=== PATIENT | female | born 1935 | race Caucasian/White ===

== ENCOUNTER 2017-04-14 05:59 | Day surgery (SDC) | payer MEDICARE ==
[~2017-04-14] VITALS: Ht 157.5 cm; Wt 101.8 kg
[~2017-04-14 05:59] MED LIST: ASPI81TA82 PO; ATEN1TAB74 PO; ATOR40TA PO; CENTCHW3 PO; CYCL-36 PO; ENAL20TA81 PO; FOLI400T30 PO; FURO1TAB93 PO; GABA600T PO; GLUC500C3 PO; HYDR-2951 PO; LANSO15 PO; LEVO100T4 PO; NORV5TAB PO; POTA-243 PO; VITA20003 PO
[2017-04-14] MEDS ORDERED: IOHEXOL 350 MG/ML 50 ML BTL (for Cath Lab) OTHER ONE (06:00)
[2017-04-14] MEDS ORDERED: IOHEXOL 350 MG/ML 10 ML VIAL (for RAD DIAG) IVCONTRAST ONE (06:00)
[2017-04-14] MEDS ORDERED: NS 1000P @30 MLS/HR (KVO) IV SCH (06:45)
[2017-04-14 07:14] VITALS: BP 145/76; PULSE 61; RESP 17; TEMP 98.1; O2SAT 95
[2017-04-14] MEDS ORDERED: AMLO5TAB2 PO (07:25)
[2017-04-14] MEDS ORDERED: LORA0.5T PO (07:33)
[2017-04-14] MEDS ORDERED: NORC5TAB PO (07:33)
[2017-04-14] MEDS ORDERED: CHOL1CAP24 PO (07:33)
[2017-04-14] MEDS ORDERED: ATEN50TA PO (07:33)
[2017-04-14] MEDS ORDERED: POTA10CA PO (07:33)
[2017-04-14] MEDS ORDERED: GABA300C5 PO (07:33)
[2017-04-14] MEDS ORDERED: LISI30TA4 PO (07:33)
[2017-04-14] MEDS ORDERED: ECASA81 PO (07:33)
[2017-04-14] MEDS ORDERED: ATOR80TA45 PO (07:33)
[2017-04-14] MEDS ORDERED: LEVO100T5 PO (07:33)
[2017-04-14] MEDS ORDERED: DOXE25CA2 PO (07:33)
[2017-04-14] MEDS ORDERED: FURO40TA PO (07:33)
[2017-04-14] MEDS ORDERED: RANI150T PO (07:33)
[2017-04-14] MEDS ORDERED: HEPARIN-NS/PF INJ 1,000 ML ONE (09:04)
[2017-04-14] MEDS ORDERED: MIDAZOLAM HCL 2 MG/2 ML VIAL ONE (09:05)
--- NOTE | 2017-04-14 09:24 | PD.FRAIL ---
Date: Apr 14, 2017 Height: 157.48 cm Weight: 101.8 kg BMI: 41.0 Assessment Performed: Outpatient Albumin 04/14/17 06:57: Albumin 3.6 Pass/Fail: Pass [place] Activities Daily Living [place] ADL Score: Bathing(bathes self/help in single area): [place] (1), Dressing(gets/puts clothes on self): [place] (1), Toileting(goes without help): [place] ( 1), [facility] [place] (1), Continence( complete self-control): [place] (1), Feeding(self, prep by another allowed) : [place] (1), Total: 6 Pass/Fail: Pass Cyber Systems Administrator Strength Grasp 1: 22 Grasp 2: 24 Grasp 3: 24 Average: 22.6 Pass/Fail: Pass 15-Foot Walk 15-Foot Walk (seconds): 10.2 Pass/Fail: Fail Total Frailty Total Frailty (out of 4): 1 Frailty Index Score Reference Cyber Systems Administrator Strength: BMI: <=23 Cutoff for cctv technician strength(Kg): <=17 BMI: 23.1-26 Cutoff for cctv technician strength(Kg): <=17.3 BMI: 26.1-29 Cutoff for cctv technician strength(Kg): <=18 BMI: >29 Cutoff for cctv technician strength(Kg): <=21 15-Foot Walk: Height: <=159 cm 15-Foot Walk Cutoff Time: >=7 seconds Height: >159 cm 15-Foot Walk Cutoff Time: >=6 seconds Indra Pittman RN Apr 14, 2017 09:24
[2017-04-14 10:03] LABS: BLOOD, URINE SMALL (NEG); GLUCOSE,URINE NEG (NEG); KETONE, URINE NEG (NEG); MUCUS URINE FEW /lpf (OCC); NITRITE,URINE NEG (NEG); SQUAMOUS EPITHELIAL CELL URINE 2 /hpf (0-5); URINE COLOR LIGHT-YELLOW (YELLW/STRAW)
[2017-04-14 10:09] LABS: COMMENT (UR) CATH-CULT NOT IND; CULTURE IF INDICATED CATH CULTURE NOT IND
[2017-04-14] MEDS ORDERED: BACITRACIN OINT 0.9 GM PKT TOP ONE (10:15)
[2017-04-14] MEDS ORDERED: oxyCODONE/ACETAMINOPHEN 5 MG/325 MG TAB PO PRN ×2 (10:15)
[2017-04-14] MEDS ORDERED: SODIUM CHLOR 0.9% 250 ML INJ 250 ML IV PRN (10:15)
[2017-04-14] MEDS ORDERED: ATROPINE SULFATE 1 MG/ML VIAL IV PUSH PRN (10:15)
[2017-04-14] MEDS ORDERED: METOCLOPRAMIDE HCL 10 MG/2 ML VIAL IV PUSH PRN (10:15)
[2017-04-14] MEDS ORDERED: MISC INFORMATION XX ONE (10:15)
[2017-04-14] MEDS ORDERED: LIDOCAINE HCL 1% 50 ML VIAL INFIL PRN (10:15)
[2017-04-14] MEDS ORDERED: SODIUM CHLORIDE 0.9% FLUSH 10 ML FLUSH IV FLUSH PRN (10:15)
[2017-04-14] MEDS ORDERED: LORazepam 2 MG/ML VIAL IV PUSH PRN (10:15)
[2017-04-14] MEDS ORDERED: ONDANSETRON HCL 4 MG/2 ML VIAL IV PUSH PRN (10:15)
--- NOTE | 2017-04-14 10:28 | CATHPROC ---
Needl HIS Report Study Information Study Number Admission Scheduled Start Study Start [id number] Apr 14 2017 5:59AM 04/14/2017 Apr 14 2017 8:10AM [place] [facility] Cardiac Catheterization Admit Source Facility Department Other [facility] - History Card Clerk Physician and Clinical Staff Initial Chace Wadsworth Director Agricultural Services Rambo Kumar,RN Recorder Lenka Polo,RT(R) Milton BinghamRT(R) ScrMary Grace Koo,core mounter Performed Procedure Location (Site) Vessel Name Coronary Angiograms LCA Left Coronary Coronary Angiograms RCA Right Coronary Equipment Time Scrap Dealer Description Size Mfg Part Number Used/Scraped ARROW INTERNATIONAL CATHETER, FR.7 BALLOON [id number] 08:52 FR 7 Used INC. WEDGE PRESSURE *[id number] TRANSDUCER, TRUWAVE [id number] 08:52 FINE ALCANTARA * Used W/STOCKCOCK *[id number] [id number] *[id number] [id number] *[id number] 08:52 MEDLINE INDUSTRIES PACK, CCL CUSTOM * Used *[id number] 08:52 [employer]way PACER PEN, SKIN DUAL W/ RULER * Used *[id number] 08:52 [employer] WIRE, 3MMJ .035 180CM 180CM Used *[id number] 08:52 NAMIC MANIFOLD, 2 PORT * Used *[id number] 08:52 NAMIC MANIFOLD, 4 PORT * Used *[id number] 08:52 NYCOMED OMNIPAQUE, 350 MG, 150ML 150ML [id number] Used [id number] 08:52 YEE MEDICAL BLANKET,WARM AIR CCL * Used *[id number] 08:52 TERUMO MEDICAL SHEATH, FR5 TERUMO (10CM) FR 5 Used *[id number] 08:52 TERUMO MEDICAL SHEATH, FR7 TERUMO (10CM) FR 7 Used *[id number] History: Current Medications Medication Dosage/Unit Route Frequency Last Date/Time Taken ASA LISINOPRIL History: Allergies Allergy Reaction tetanus toxoid, adsorbed SWELLING AT INJECTION SITE brimonidine redness duloxetine History: Risk Factors Family History of Hypertension Dyslipidemia Previous PA Previous Heart Failure Premature CAD Yes Yes Yes Yes Yes Prior Valve Prior PCI Prior CABG Surgery No No No Cerebrovascular Peripheral Artery Chronic Lung On Dialysis Diabetes Disease Disease Disease No No No No Yes History: Stress Tests Stress or Imaging Studies Performed No History: Other Disease Selection Items CHF HTN History: Other Current Smoker No Labs Hgb (g/dl) Hct (%) WBC (l/cumm) Platelets (thousands) 11.60-17.00 35.00-51.00 4.00-11.00 150.00-450.00 13.6 41.6 7.9 266 Glucose (mg/dl) BUN (mg/dl) Creatinine (mg/dl) BUN:Creatinine (1:x) 74.00-106.00 7.00-18.00 0.50-1.30 10.00-20.00 133 13 0.9 14.4 Na (meq/l) K (meq/l) 136.00-145.00 3.50-5.10 146 4.1 Medication Medication Total Dose (Bolus/Oral) Medication Total Dosage/Unit 1% XYLOCAINE 20 mL FENTANYL 25 mcg VERSED 1 mg Medications (Bolus/Oral) Medication Time Given Dosage/Unit Administered By Reason VERSED 04/14/2017 9:24:29 AM 1 mg Rambo Kumar 1 mg VERSED given in lab by Rambo Kumar RN in Right Antecubital via Peripheral IV. Ordered by Chace Maier. FENTANYL 04/14/2017 9:25:35 AM 25 mcg Rambo Kumar 25 mcg FENTANYL given in lab by Rambo Kumar RN in Right Antecubital via Peripheral IV. Ordered by Chace Morgan. 1% XYLOCAINE 04/14/2017 9:32:53 AM 20 mL Chace Morgan 20 mL 1% XYLOCAINE given in lab by Chace Morgan in Right Groin via Subcutaneous. Medication (Drip) Medication Time Given Dosage/Unit Concentration/Unit Diluent (ml) Solution IV Solutions 04/14/2017 9:00:53 AM 50 mL (IV) NaCl .9 IV Solutions given in lab by Rambo Kumar RN in Right Hand via Peripheral IV. Pump/Drip Flow using NaCl .9. Initial Case Assessment Cardiovascular HR Rhythm NIBP Chest Pain 78 SR 151/78 0 Skin color Skin Normal Warm Dry Neurological State Oriented to time-place- Alert Moves all extremities person Respiration - General Respiration Rate SpO2 (%) (B/min) 20 96 Chronological Log Time Study Chronological Log 8:58:00 Patient arrived via Bed. 9:00:36 Patient Name, D.O.B, / Armband Verified By R.N. 9:00:37 Consent signed by the physician and the patient and verified by the History Card Clerk staff. 9:00:37 Pre-op and post- op instructions given; patient acknowledges understanding of instructions. 9:00:38 Verbal Stimulation=2 Physical Stimulation=2 Airway=2 Respiration=2 TOTAL=8. (0=absent, 1=li mited, 2=present) 9:00:41 Presedation assessment performed by History Card Clerk RN. 9:00:45 Patient has been NPO for More than 6Hrs. 9:00:46 Skin Breakdown- none per pt 9:00:49 Patient Warmer Placed on the Table. 9:00:50 Ben Prominences Protected 9:00:52 A # 20 IV was noted in the Antecubital (right). Grade = 0 9:00:53 IV Solutions given in lab by Rambo Kumar RN in Right Hand via Peripheral IV. Pump/Drip F low using NaCl .9. 9:00:53 History and physical on the chart or being dictated. Assessment: Initial Case, HR=78 BPM, Rhythm=SR, ADTM=879/78 mmhg, Chest Pain=0, Color=Normal, Skin = Warm, Dry 9:00:54 Neurological: State=Alert, Ox3, FERNÁNDEZ Respiration: Resp=20 B/min, SpO2=96 % Vitals capture started with the following parameters, Patient=Adult, Interval=5 min, Initial P hpewtyf=304 mmHg, 9:03:05 Deflation Rate=5 mmHg, Cuff placed on Left Arm 9:03:53 HR=78 bpm, RZWJ=332/78 mmhg, SpO2=96.0 %, Resp=20 B/min 9:08:54 HR=78 bpm, ARKS=756/75 mmhg, SpO2=96.0 %, Resp=18 B/min 9:13:51 HR=70 bpm, IGZW=007/79 mmhg, SpO2=97.0 %, Resp=15 B/min 9:15:14 Reference ECG taken 9:18:50 HR=75 bpm, DABC=430/92 mmhg, SpO2=97.0 %, Resp=17 B/min 9:19:29 Bilateral groins prepped with 2% chlorhexidine, and draped after a 3 minute waiting time. 9:23:53 HH=416 bpm, ODLG=498/63 mmhg, SpO2=97.0 %, Resp=20 B/min 9:24:03 MD arrived. 9:24:29 1 mg VERSED given in lab by Rambo Kumar RN in Right Antecubital via Peripheral IV. Order ed by Chace Morgan. 9:25:35 25 mcg FENTANYL given in lab by Rambo Kumar RN in Right Antecubital via Peripheral IV. Or dered by Chace Morgan. 9:28:45 Pressure channel 1 zeroed. 9:28:52 HR=71 bpm, KCVD=438/68 mmhg, SpO2=96 %, Resp=18 B/min Time Out. Correct patient, correct procedure, correct physician, power injector loaded, or not loaded with contrast with 9:31:29 surgical team present. Time Out Concurred by MD and individual staff in procedure. 9:32:43 Case Start 9:32:53 20 mL 1% XYLOCAINE given in lab by Chace Morgan in Right Groin via Subcutaneous. 9:33:51 HR=70 bpm, XTGU=188/64 mmhg, SpO2=92.0 %, Resp=16 B/min 9:34:22 Access site was Right Femoral Artery. 9:34:52 A SHEATH, FR5 TERUMO (10CM) FR 5 was advanced into the Fem Art (right) using the Percutaneou s technique. 9:36:24 Access site was Right Femoral Vein. 9:36:30 A SHEATH, FR7 TERUMO (10CM) FR 7 was advanced into the Fem Vein (right) using the Percutaneo us technique. A CATHETER, FR.7 BALLOON WEDGE PRESSURE FR 7 was advanced over a wire. OMNIPAQUE, 350 MG, 150ML 150ML 9:37:18 was used for injections. Recorded Pressure: RA, HR=67, Condition=Condition 1 9:38:07 (Right Atrium) RA 21/18/17 Recorded Pressure: RV, HR=75, Condition=Condition 1 9:38:30 (Right Ventricle) RV 46/14/20 9:38:52 HR=71 bpm, LFIR=299/75 mmhg, SpO2=94.0 %, Resp=16 B/min Recorded Pressure: MPA, HR=70, Condition=Condition 1 9:39:13 (Main Pulmonary Artery) MPA 41/19/30 9:39:30 Saturation: Site=Ao (Aorta) , O2=94.7 %, Hgb=13.6 gm/dl, Condition=Condition 1. Used in calc ulation. 9:39:58 Saturation: Site=PA (Pulmonary Artery) , O2=78.8 %, Hgb=13.6 gm/dl, Condition=Condition 1. U sed in calculation. Recorded Pressure: PCW, HR=72, Condition=Condition 1 9:40:15 (Pulmonary Capillary Wedge) PCW 27//21 9:40:38 [place] Catheter Removed A JL 4.0 INFINITI CATHETER FR 5 was advanced over a wire. OMNIPAQUE, 350 MG, 150ML 150ML was us ed for 9:42:01 injections. Recorded Pressure: Ao, HR=71, Condition=Condition 1 9:43:50 (Aorta) Ao 138/74/101 9:43:51 HR=71 bpm, EKVQ=567/68 mmhg, SpO2=92.0 %, Resp=17 B/min 9:45:14 The LCA was injected and visualized at various angles. OMNIPAQUE, 350 MG, 150ML 150ML used. After removing the current catheter a JR 4.0 INFINITI CATHETER FR 5 was advanced over a WIRE, 3 MMJ .035 180CM 9:47:55 180CM. 9:48:52 HR=68 bpm, IRXL=679/71 mmhg, SpO2=92 %, Resp=19 B/min 9:53:20 The RCA was injected and visualized at various angles. OMNIPAQUE, 350 MG, 150ML 150ML used. 9:53:54 HR=72 bpm, WZEI=307/67 mmhg, SpO2=91.0 %, Resp=18 B/min 9:54:15 Catheter was removed 9:54:53 Case End 9:58:15 Arterial sheath removed; pressure applied to access site. 9:58:59 HR=65 bpm, KHOC=805/53 mmhg, SpO2=95 %, Resp=16 B/min 10:04:00 HR=71 bpm, MJMI=122/49 mmhg, SpO2=93.0 %, Resp=20 B/min 10:08:51 HR=63 bpm, IAJH=645/74 mmhg, SpO2=93.0 %, Resp=15 B/min 10:09:46 Venous sheath removed; pressure applied to access site. 10:12:28 Sterile dressing applied to site 10:12:29 No case complications noted. 10:12:30 Bedside Report will be given. 10:12:50 A Left and Right Heart Cath was performed. 10:13:54 HR=69 bpm, BSQB=255/68 mmhg, SpO2=92.0 %, Resp=17 B/min 10:18:53 HR=63 bpm, ELYE=766/69 mmhg, SpO2=94.0 %, Resp=17 B/min 10:20:24 Vitals capture stopped. 10:25:52 Patient moved to stretcher End Study - Contrast Media Used In Study Contrast Total Opened (mL) Total Used (mL) Total Wasted (mL) Omnipaque 40 40 0 End Study - Maximum Contrast Load Max Contrast Load (mL) 566.7 End Study - Radiation Exposure Fluoro Time (minutes) 3.8 End Study - Patient Disposition Complications Transferred To Interventional Outcome No Telemetry Bed No attempt made
--- NOTE | 2017-04-14 10:40 | MA ---
cc: CIRA FARFAN DATE 04/14/2017 INDICATION Aortic stenosis PROCEDURE PERFORMED 1. Fluoroscopy with interpretation 2. Coronary angiography 3. Right heart catheterization METHOD The risks, benefits and alternatives discussed with the patient. The patient understood, and consented to the procedure. The patient was brought into catheterization lab, placed on the catheterization table. The right groin was prepped and draped in a sterile fashion. The right groin was anesthetized with 2% lidocaine. The right common femoral artery was cannulated and a 5-Egyptian 11 cm sheath was placed in the artery. A 7-Egyptian, 11-cm sheath was placed in the vein. INITIAL HEMODYNAMIC Aortic pressure measured at 138/74 mmHg. RIGHT HEART CATHETERIZATION A 7-E[place]ian [place] pulmonary II catheter was advanced into the right atrium under fluoroscopic guidance. Hemodynamics were performed in all chambers while advancing to the pulmonary capillary wedge position. Hemodynamics are as follows; 1. Right atrial pressure measured at 17 mmHg. 2. Right ventricular pressure measured 46-114 mm. 3. Pulmonary arterial pressure measured at 41/19 mmHg. 4. Pulmonary wedge pressure measured 21 mmHg. 5. Cardiac output measured at 8.5 liters per minute. 6. Cardiac index measured at 4.3 liters per minute per meter squared. CORONARY ANGIOGRAPHY 1. Left main coronary is angiographically normal. 2. Left anterior descending coronary has minor luminal irregularities. The diagonal branch with minor luminal irregularities. 3. Left circumflex has minor luminal irregularities, gives rise to an obtuse marginal branch. 4. The right coronary is a dominant vessel giving rise to a posterior descending branch. The right coronary has mild luminal irregularities. CONCLUSION 1. Mild nonobstructive coronary disease. 2. Mild pulmonary hypertension. 3. Mildly elevated left-sided filling pressures. 4. Normal cardiac output and index. PLAN We will continue with the workup for her aortic stenosis which includes surgical evaluation for candidacy for surgical traditional AVR versus transcatheter and aortic valve replacement. MD MATEUS Leija/JEANNETTE /10:10 AM /10:32 AM
--- NOTE | 2017-04-14 11:20 | ECHRPT ---
Indication: tavr CONCLUSIONS Normal left ventricular size. Mild concentric left ventricular hypertrophy. The left ventricular systolic function is normal with an estimated ejection fraction in the range of 55-60%. Mild thickening of the aortic valve leaflets. Diffuse calcification of the aortic valve. No aortic valve regurgitation. Severe aortic valve stenosis. Aortic valve area is 0.61 cm. Aortic valve mean gradient is 34 mmHg. AV V max 438 cm/s BP: / HR: Rhythm: MEASUREMENTS (Male / Female) Normal Values Technical Quality:Good 2D ECHO LV Diastolic Diameter PLAX 4.4 cm 4.2 - 5.9 / 3.9 - 5.3 cm LV Systolic Diameter PLAX 3.2 cm IVS Diastolic Thickness 1.2 cm 0.6 - 1.0 / 0.6 - 0.9 cm LVPW Diastolic Thickness 1.0 cm 0.6 - 1.0 / 0.6 - 0.9 cm LV Relative Wall Thickness 0.5 RV Internal Dim ED PLAX 2.9 cm LVOT Diameter 2.0 cm DOPPLER AV Peak Velocity 438.0 cm/s AV Peak Gradient 76.7 mmHg AV Mean Gradient 34.0 mmHg AV Velocity Time Integral 107.0 cm LVOT Peak Velocity 80.5 cm/s LVOT Peak Gradient 2.6 mmHg LVOT Velocity Time Integral 20.8 cm AV Area Cont Eq vti 0.6 cm AV Area Cont Eq pk 0.6 cm FINDINGS LEFT VENTRICLE Normal left ventricular size. Mild concentric left ventricular hypertrophy. The left ventricular systolic function is normal with an estimated ejection fraction in the range of 55-60%. RIGHT VENTRICLE Normal right ventricular size and systolic function. LEFT ATRIUM The left atrial size is normal. RIGHT ATRIUM The right atrial size is normal. ATRIAL SEPTUM Normal atrial septal thickness without atrial level shunting by limited color doppler interrogation. AORTA The aortic root and proximal ascending aorta are normal in size on limited imaging. MITRAL VALVE Structurally normal mitral valve. No mitral valve stenosis or regurgitation. AORTIC VALVE Trileaflet aortic valve. Mild thickening of the aortic valve leaflets. Diffuse calcification of the aortic valve. No aortic valve regurgitation. Severe aortic valve stenosis. Aortic valve area is 0.61 cm. Aortic valve mean gradient is 34 mmHg. AV V max 438 cm/s TRICUSPID VALVE Structurally normal tricuspid valve. No tricuspid valve stenosis or regurgitation. PULMONARY VALVE The pulmonary valve is not well visualized. VESSELS The inferior vena cava is normal in size. PERICARDIUM No pericardial effusion. Chace Morgan MD, FACC (Electronically Signed) Final Date:14 April 2017 11:19
--- NOTE | 2017-04-14 14:58 | RADRPT ---
EXAM DATE/TIME: 04/14/2017 11:26 [facility] COMPARISON: CHEST SINGLE AP, February 24, 2016, 12:44. INDICATIONS : Post heart cath MEDICAL HISTORY : Cardiovascular disease. Hiatal hernia. Renal calculi. diabetes, SURGICAL HISTORY : Hysterectomy. ENCOUNTER: Initial ACUITY: 1 day PAIN SCORE: 0/10 LOCATION: Bilateral chest FINDINGS: 2 portable frontal views of the chest show a normal heart size. No pneumomediastinum or pneumothorax. Lungs are clear. No effusions. CONCLUSION: No acute cardio pulmonary disease. Torres Real Jr., MD on April 14, 2017 at 14:36 Board Certified Radiologist. This report was verified electronically.
--- NOTE | 2017-04-14 16:04 | PD.CAR.PN ---
CVT Progress Note Subjective/Hospital Course: sts data discussed with pt RISK SCORES About the STS Risk Calculator Procedure: AV Replacement Risk of Mortality: 4.535% Morbidity or Mortality: 19.874% Long Length of Stay: 10.403% Short Length of Stay: 22.024% Permanent Stroke: 1.728% Prolonged Ventilation: 14.321% DSW Infection: 0.425% Renal Failure: 6.767% Reoperation: 6.749% Objective: Vital Signs Date Time Temp Pulse Resp B/P (MAP) Pulse Ox O2 Delivery O2 Flow Rate FiO2 04/14/17 10:27 95 Room Air 04/14/17 07:14 98.1 61 17 145/76 (99) 95 Labs: Laboratory Tests Test 04/14/17 06:57 04/14/17 07:30 Nasal Screen MRSA (PCR) MRSA NOT DETECTED (NOT Albumin 3.6 GM/DL (3.4-5.0) Urine Color LIGHT-YELLOW (YELLW/STRAW) Urine Turbidity CLEAR (CLEAR) Urine pH 7.0 (5.0-8.5) Urine Specific [place] 1.004 (1.002-1.035) Urine Protein NEG mg/dL (NEG-TRACE) Urine Glucose (UA) NEG mg/dL (NEG) Urine Ketones NEG mg/dL (NEG) Urine Occult Blood SMALL (NEG) Urine Nitrite NEG (NEG) Urine Bilirubin NEG (NEG) Urine Urobilinogen LESS THAN 2.0 MG/DL (LESS Urine Leukocyte Esterase SMALL (NEG) Urine RBC LESS THAN 1 /hpf (0-3) Urine WBC 1 /hpf (0-5) Urine Squamous Epithelial Cells 2 /hpf (0-5) Urine Mucus FEW /lpf (OCC) Microscopic Urinalysis Comment CATH-CULT NOT IND Shannan Weclh Apr 14, 2017 16:04
--- NOTE | 2017-04-14 16:11 | EKG ---
Date Performed: 04/14/2017 Time Performed: 07:16:30 PTAGE: 82 years EKG: Sinus bradycardia. Poor R wave progression - probable normal variant Borderline ECG Since PREVIOUS TRACING , no significant change noted PREVIOUS TRACIN02/24/2016 12.58 DOCTOR: Juliet Mendez Interpretating Date/Time 04/14/2017 16:10:38
--- NOTE | 2017-04-14 16:58 | PD.CONS ---
History of Present Illness Service CT Surgery Consult Requested By Dr. Morgan Reason for Consult Severe symptomatic aortic stenosis Primary Care Physician Norberto Moran M.D. Diagnoses: (1) Diastolic CHF (2) Severe aortic stenosis History of Present Illness 82y/o female presents with exertional dyspnea in the setting of severe aortic stenosis. She had a recent echo which shows a calculated KATHI of 0.61cm2. She had a left heart cath today which shows no obstructive CAD. She has preserved LV function. She denies palpitations, chest pain, PND, orthopnea. Review of Systems Constitutional: COMPLAINS OF: Fatigue, DENIES: Diaphoretic episodes, Fever, Weight gain, Weight loss, Chills, Dizziness, Change in appetite, Night Sweats Endocrine: DENIES: Abnorml menstrual pattern, Heat/cold intolerance, Polydipsia , Polyuria, Polyphagia Eyes: DENIES: Blurred vision, Diplopia, Eye inflammation, Eye pain, Vision loss , Photosensitivity, Double Vision Ears, nose, mouth, throat: DENIES: Tinnitus, Hearing loss, Vertigo, Nasal discharge, Oral lesions, Throat pain, Hoarseness, Ear Pain, Running Nose, Epistaxis, Sinus Pain, Toothache, Odynophagia Respiratory: DENIES: Apneas, Cough, Snoring, Wheezing, Hemoptysis, Sputum production, Shortness of breath Cardiovascular: COMPLAINS OF: Dyspnea on Exertion, Lower Extremity Edema, DENIES: Chest pain, Palpitations, Syncope, PND, Orthopnea, Claudication Gastrointestinal: DENIES: Abdominal pain, Black stools, Bloody stools, Constipation, Diarrhea, Nausea, Vomiting, Difficulty Swallowing, Anorexia Genitourinary: DENIES: Abnormal vaginal bleeding, Dysmenorrhea, Dyspareunia, Sexual dysfunction, Urinary frequency, Urinary incontinence, Urgency, Hematuria , Dysuria, Nocturia, Vaginal discharge Musculoskeletal: COMPLAINS OF: Muscle aches, Stiffness, DENIES: Joint pain, Joint Swelling, Back pain, Neck pain Integumentary: DENIES: Abnormal pigmentation, Pruritus, Rash, Nail changes, Breast masses, Breast skin changes, Nipple discharge Hematologic/lymphatic: DENIES: Bruising, Lymphadenopathy Immunologic/allergic: DENIES: Eczema, Urticaria Neurologic: COMPLAINS OF: Abnormal gait, DENIES: Headache, Localized weakness, Paresthesias, Seizures, Speech Problems, Tremor, Poor Balance Psychiatric: DENIES: Anxiety, Confusion, Mood changes, Depression, Hallucinations, Agitation, Suicidal Ideation, Homicidal Ideation, Delusions Past Family Social History Allergies: Coded Allergies: brimonidine (Unverified Allergy, Severe, redness, 12/28/16) duloxetine (Verified Allergy, Severe, 04/14/17) tetanus toxoid, adsorbed (Unverified Adverse Reaction, Intermediate, SWELLING AT INJECTION SITE, 12/28/16) Past Medical History HTN Type 2 diabetes DDD GERD Hyperlipidemia Hypothyroidism Lymphedema Morbid obesity arthritis PSVT Past Surgical History Colonoscopy EGD hysterectomy Hip replacement Reported Medications Amlodipine ASA Atenolol Atorvastatin Doxepin Lasix Gabapentin Percocet Levothyroxine Lisinopril Ativan KCl Zantac Vit D Family History Unremarkable Social History Denies ETOH, tobacco, drugs Physical Exam Vital Signs Vital Signs Date Time Temp Pulse Resp B/P (MAP) Pulse Ox O2 Delivery O2 Flow Rate FiO2 04/14/17 10:27 95 Room Air 04/14/17 07:14 98.1 61 17 145/76 (99) 95 Physical Exam GENERAL: This is a well-nourished, well-developed patient, in no apparent distress. SKIN: No rashes, ecchymoses or lesions. Cool and dry. HEAD: Atraumatic. Normocephalic. No temporal or scalp tenderness. EYES: Pupils equal round and reactive. Extraocular motions intact. No scleral icterus. No injection or drainage. ENT: Nose without bleeding, purulent drainage or septal hematoma. Throat without erythema, tonsillar hypertrophy or exudate. Uvula midline. Airway patent. NECK: Trachea midline. No JVD or lymphadenopathy. Supple, nontender, no meningeal signs. CARDIOVASCULAR: Regular rate and rhythm with 2/6 PETEY RUSB. RESPIRATORY: Clear to auscultation. Breath sounds equal bilaterally. No wheezes , rales, or rhonchi. GASTROINTESTINAL: Abdomen soft, non-tender, nondistended. No hepato-splenomegaly , or palpable masses. No guarding. MUSCULOSKELETAL: 4+ pedal edema bilaterally. NEUROLOGICAL: Awake and alert. Cranial nerves II through XII intact. Motor and sensory grossly within normal limits. Five out of 5 muscle strength in all muscle groups. Normal speech. Laboratory Laboratory Tests Test 04/14/17 06:57 04/14/17 07:30 Nasal Screen MRSA (PCR) MRSA NOT DETECTED Albumin 3.6 Urine Color LIGHT-YELLOW Urine Turbidity CLEAR Urine pH 7.0 Urine Specific [place] 1.004 Urine Protein NEG Urine Glucose (UA) NEG Urine Ketones NEG Urine Occult Blood SMALL Urine Nitrite NEG Urine Bilirubin NEG Urine Urobilinogen LESS THAN 2.0 Urine Leukocyte Esterase SMALL Urine RBC LESS THAN 1 Urine WBC 1 Urine Squamous Epithelial Cells 2 Urine Mucus FEW Microscopic Urinalysis Comment CATH-CULT NOT IND Imaging Last Impressions Chest X-Ray 04/14/17 0000 Signed Impressions: Service Date/Time: March 11:26 - CONCLUSION: No acute cardio pulmonary disease. Torres Real Jr., MD Course Patient underwent CTA and LHC today. Assessment and Plan Problem List: (1) Severe aortic stenosis ICD Codes: I35.0 - Nonrheumatic aortic (valve) stenosis (2) Diastolic CHF ICD Codes: I50.30 - Diastolic CHF Status: Acute Assessment and Plan 82y/o female presents with severe symptomatic with preserved LV function. Her advanced age and difficulty ambulating together with her STS risk scores place her at intermediate risk for surgical AVR. She would benefit from TAVR and I recommend TAVR for her. RISK SCORES About the STS Risk Calculator Procedure: AV Replacement Risk of Mortality: 4.535% Morbidity or Mortality: 19.874% Long Length of Stay: 10.403% Short Length of Stay: 22.024% Permanent Stroke: 1.728% Prolonged Ventilation: 14.321% DSW Infection: 0.425% Renal Failure: 6.767% Reoperation: 6.749% Discussed Condition With Patient and her daughter Problem Qualifiers (1) Diastolic CHF: Qualified Codes: I50.33 - Acute on chronic diastolic (congestive) heart failure Kati Edward MD Apr 14, 2017 16:58
--- NOTE | 2017-04-14 20:23 | RADRPT ---
EXAM DATE/TIME: 04/14/2017 15:53 [place] COMPARISON: No previous studies available for comparison. INDICATIONS : Pre operative for TAVR. IV CONTRAST: 100 cc Omnipaque 350 (iohexol) IV RADIATION DOSE: 34.39 CTDIvol (mGy) MEDICAL HISTORY : Cardiovascular disease. Hypertension. Diabetes mellitus type 2. SURGICAL HISTORY : Hysterectomy. ENCOUNTER: Initial ACUITY: 1 day PAIN SCALE: 0/10 LOCATION: Bilateral chest TECHNIQUE: Volumetric scanning was performed using a multi-row detector CT scanner. The data was post processed with a variety of visualization algorithms including full volume maximum intensity projection, multi -planar sliding thin slab reformation, curved planar reformation, and surface rendering techniques. Using automated exposure control and adjustment of the mA and/or kV according to patient size, radiat ion dose was kept as low as reasonably achievable to obtain optimal diagnostic quality images. DIC OM format image data is available electronically for review and comparison. FINDINGS: CARDIAC: The coronary system is right dominant. There are calcifications at the proximal and mid LAD, the pro ximal, mid, and distal right coronary artery. and minimally at the proximal aspect of the first obtus e marginal. AORTIC ROOT/VALVE: Calcifications are seen at the aortic valve. There are scattered calcifications seen throughout the t horacic aorta. The aortic root measures 2.9 cm. Mid thoracic aorta measures 2.4 cm. THORACIC AORTA: Origin of the great vessels is normal. No evidence of aneurysm, mural thrombus, dissection, or sten osis. There are calcifications at the origins of the right brachiocephalic and the left subclavian a rtery. ABDOMINAL AORTA: No evidence of aneurysm, mural thrombus, dissection, or stenosis. There are spelled calcification se en throughout the abdominal aorta and at the branch vessels. CELIAC ARTERY: Celiac artery is widely patent. SMA: Superior mesenteric artery is widely patent. RIGHT RENAL ARTERY: Right renal artery is widely patent. LEFT RENAL ARTERY: Left renal artery is widely patent. RIGHT COMMON ILIAC: No evidence of aneurysm, mural thrombus, dissection, or stenosis. The common femoral measures 1.1 cm . LEFT COMMON ILIAC: No evidence of aneurysm, mural thrombus, dissection, or stenosis. The common femoral measures 1.0 cm . There is induration in the right groin which may be from recent catheterization. THORAX: Negative ABDOMEN: Negative PELVIS: There are diverticula in the sigmoid region. There is a left hip prosthesis in place. CONCLUSION: Scattered atherosclerotic calcification seen throughout the arterial system including the coronary ar teries. There is no dissection or aneurysm seen. Brodie Chris MD on April 14, 2017 at 20:00 Board Certified Radiologist. This report was verified electronically.
--- NOTE | 2017-04-15 08:25 | MB ---
cc: ALE MORTON MD DATE OF CONSULTATION: 04/14/17 HISTORY OF PRESENT ILLNESS This is an 82-year-old female brought in for elective heart catheterization by Dr. Morgan with a history of aortic stenosis. Underwent repeat echocardiogram that showed aortic valve area 0.61, mean gradient of 34. No aortic insufficiency, trace tricuspid regurgitation, trace mitral regurgitation. Left atrial size normal, right atrial size normal. Ejection fraction of 55-60%. She underwent cardiac cath which showed nonobstructive coronary disease, proximal LAD 20%, mid distal 20%, the diagonal 20, and the RCA 20. We were consulted to evaluate for aortic valve replacement versus transcatheter aortic valve replacement. Her frailty score is 1/4. She failed to mobility portion. Her STS score is 4.53. PAST MEDICAL HISTORY Other past medical history includes - 1. Chronic diastolic congestive heart failure, Morgan Class 2-3. 2. Morbid obesity with a BMI of 41. 3. Paroxysmal SVT. 4. Pulmonary hypertension. 5. Hypertension. 6. Hyperlipidemia. 7. Diabetes mellitus, apparently diet-controlled. 8. Insomnia. 9. Glaucoma. 10. Gastroesophageal reflux disease. 11. Degenerative disc disease in her lower back. 12. Chronic left hip pain. 13. Paroxysmal supraventricular tachycardia. 14. Chronic lower extremity lymphedema. PAST SURGICAL HISTORY 1. Colonoscopy. 2. EGD. 3. Hysterectomy. 4. Cataract surgery. 5. Bilateral hip replacement x2 on the left. ALLERGIES BRIMONIDINE, DULOXETINE, TETANUS TOXOID. MEDICATIONS Home medications include - 1. Amlodipine 5 mg. 2. Aspirin 81. 3. Atenolol 50. 4. Atorvastatin 50. 5. Doxepin 25. 6. Lasix 40. 7. Gabapentin 300. 8. Hollister p.r.n. for pain. 9. Levothyroxine. 10. Lisinopril. 11. Lorazepam. 12. Potassium. 13. Ranitidine. FAMILY HISTORY Noncontributory. SOCIAL HISTORY The patient , one child, retired PROJECT SYSTEMS ENGINEER from here at [employer]. Limited mobility due to her chronic neck and back pain. She does drive. She does cook and clean. REVIEW OF SYSTEMS GENERAL: No night sweats, fever, heat and cold intolerance. SKIN: No psoriasis, itching or hives. HEENT: No blurred vision, hearing loss. RESPIRATORY: Chronic shortness of breath with minimal exertion. CARDIOVASCULAR: No current chest pain. No paroxysmal nocturnal dyspnea. GASTROINTESTINAL: She has chronic GERD, hiatal hernia. GENITOURINARY: No burning, frequency, urgency. IMPREGNATOR HELPER: No history of TIA, CVA, seizure disorder. ENDOCRINOLOGY: Positive for hypothyroidism and diabetes mellitus. She does wear glasses. She does have dentures. PHYSICAL EXAMINATION VITAL SIGNS: Blood pressure 140/70, heart rate is 60, afebrile. GENERAL: The patient is awake, alert, no acute distress. HEAD, EYES, EARS, NOSE AND THROAT: Head is normocephalic, atraumatic. Pupils equal, round and reactive. Oral mucosa pink, moist. NECK: Supple. No JVD. HEART: Heart sounds S1, S2. A 3/6 systolic murmur best noted at the left sternal border. LUNGS: Clear to auscultation. No wheezes, rales or rhonchi. ABDOMEN: Abdomen is obese, soft, nontender. No masses or organomegaly. EXTREMITIES: Extremities reveal chronic lymphedema with good palpable distal pulses. LABORATORY DATA Lab work shows an unremarkable urinalysis. MRSA screen negative. Albumin 3.6, BUN of 13, creatinine 0.94, sodium 146. Hemoglobin 13, hematocrit of 41, white cell count of 7, and platelet count of 266. IMPRESSION This is a very pleasant 82-year-old female that does live alone, has had a longstanding history of severe aortic stenosis with worsening symptoms, frailty score 1/4, however her STS score is 4.5. Other comorbidities include morbid obesity, limited mobility, chronic lymphedema. The patient has intermittent to higher risk and recommending transcatheter aortic valve replacement at this time. She also has some restrictive disease with an FEV-1 of 0.92 increasing her risk. Dictated by: BENITO Beltre MD PARISH Walker/ABHIJEET /4:05 PM /8:08 AM
--- NOTE | 2017-04-18 10:13 | RSPPFT ---
DATE OF PROCEDURE: 04/14/17 COMMENTS: Spirometry with FVC of 1.3, FEV1 of 0.9, FEV1/FVC ratio at 70%. IMPRESSION: 1. Severe airways obstruction. 2. Post-bronchodilator study was not performed.
== END 2017-04-14 16:50 | disposition home or self-care (01) ==
LOC: HDIC 05:59 → HDOC 05:59
PROVIDERS: ATTEND Internal Medicine
DX: I35.0 Nonrheumatic aortic (valve) stenosis (principal); I50.32 Chronic diastolic (congestive) heart failure; I25.10 Atherosclerotic heart disease of native coronary artery without angina pectoris; I27.20 Pulmonary hypertension, unspecified; I11.0 Hypertensive heart disease with heart failure; I47.1 Supraventricular tachycardia; I13.0 Hypertensive heart and chronic kidney disease with heart failure and stage 1 through stage 4 chronic kidney disease, or unspecified chronic kidney disease; N18.9 Chronic kidney disease, unspecified; K21.9 Gastro-esophageal reflux disease without esophagitis; I89.0 Lymphedema, not elsewhere classified; M51.37 Other intervertebral disc degeneration, lumbosacral region; G47.00 Insomnia, unspecified; E78.5 Hyperlipidemia, unspecified; I34.0 Nonrheumatic mitral (valve) insufficiency; R06.02 Shortness of breath; E03.9 Hypothyroidism, unspecified; M54.2 Cervicalgia; Z68.41 Body mass index [BMI] 40.0-44.9, adult; E66.01 Morbid (severe) obesity due to excess calories; Z79.82 Long term (current) use of aspirin; I70.0 Atherosclerosis of aorta; G89.29 Other chronic pain; E11.42 Type 2 diabetes mellitus with diabetic polyneuropathy; I25.2 Old myocardial infarction; Z96.643 Presence of artificial hip joint, bilateral; H40.003 Preglaucoma, unspecified, bilateral
CPT/HCPCS: 71010; 74174; 81001; 82040; 82810; 86850; 86900; 86901; 87641; 93005; 93308; 93456; 94010; 99152; 99153; C1769; C1893; J1644; J2250; J3010; Q9967

== ENCOUNTER → 2017-07-18 | Outpatient (CLI) | payer MEDICARE ==
[~2017-07-18] MED LIST changes: +AMLO5TAB2 PO; -ASPI81TA82 PO; -ATEN1TAB74 PO; +ATEN50TA PO; -ATOR40TA PO; +ATOR80TA45 PO; -CENTCHW3 PO; +CHOL1CAP24 PO; -CYCL-36 PO; +DOXE25CA2 PO; +ECASA81 PO; -ENAL20TA81 PO; -FOLI400T30 PO; -FURO1TAB93 PO; +FURO40TA PO; +GABA300C5 PO; -GABA600T PO; -GLUC500C3 PO; -HYDR-2951 PO; -LANSO15 PO; -LEVO100T4 PO; +LEVO100T5 PO; +LISI30TA4 PO; +LORA0.5T PO; +NORC5TAB PO; -NORV5TAB PO; -POTA-243 PO; +POTA10CA PO; +RANI150T PO; -VITA20003 PO
[2017-07-18 10:47] LABS: AUTOMATED NEUTROPHIL # 2.7 TH/MM3 (1.8-7.7); BASOPHIL # 0.1 TH/MM3 (0-0.2); BASOPHIL % 1.7 % (0.0-2.0); EOSINOPHIL # 0.1 TH/MM3 (0-0.4); EOSINOPHIL % 2.4 % (0.0-4.0); HEMATOCRIT 40.5 % (35.0-46.0); HEMOGLOBIN 13.6 GM/DL (11.6-15.3); LYMPHOCYTE # 2.3 TH/MM3 (1.0-4.8); MEAN CELL VOLUME 90.3 FL (80.0-100.0); MEAN CORPUSCULAR HEMOGLOBIN 30.4 PG (27.0-34.0); MEAN CORPUSCULAR HGB CONC 33.7 % (32.0-36.0); MEAN PLATELET VOLUME 7.4 FL (7.0-11.0); MONO % 10.9 % (0.0-8.0); MONOCYTE # 0.6 TH/MM3 (0-0.9); PLATELET COUNT 256 TH/MM3 (150-450); RED BLOOD COUNT 4.48 MIL/MM3 (4.00-5.30); RED CELL DISTRIBUTION WIDTH 14.9 % (11.6-17.2); WHITE BLOOD COUNT 5.9 TH/MM3 (4.0-11.0)
[2017-07-18 11:03] LABS: BICARBONATE 32.5 MEQ/L (21.0-32.0); CALCIUM 9.7 MG/DL (8.5-10.1); CREATININE 0.87 MG/DL (0.50-1.00)
[2017-07-18 11:05] LABS: PROTHROMBIN TIME - PATIENT 10.3 SEC (9.8-11.6)
== END ==
LOC: CLAB 09:46
PROVIDERS: ATTEND Internal Medicine
DX: I35.0 Nonrheumatic aortic (valve) stenosis (principal)
CPT/HCPCS: 36415; 80048; 85025; 85610; 86850; 86900; 86901

== ENCOUNTER 2017-07-20 05:13 | Inpatient (IN) | payer MEDICARE ==
[2017-07-20] VITALS (8 sets, daily range): BP systolic 111–149; BP diastolic 25–72; PULSE 62–96; RESP 16–22; TEMP 95.1–98.6; O2SAT 90–98
[~2017-07-20] VITALS: Ht 154.9 cm; Wt 100.4 kg
[2017-07-20] MEDS ORDERED: CHLORHEXIDINE GLUCONATE 2 % 1 PACK (2 CLOTHS) TOPICAL PRN (05:45)
[2017-07-20] MEDS ORDERED: ceFAZolin 2 GM PREMIX 50 ML IV PRN (05:45)
[2017-07-20] MEDS ORDERED: MUPIROCIN 2% OINT 1 APPLIC/GM SYRINGE EACH NARE PRN (05:45)
[2017-07-20] MEDS ORDERED: SODIUM CHLOR 0.9% 1000 ML 1,000 ML IV SCH (05:45)
[2017-07-20] MEDS ORDERED: POVIDONE IODINE 5% (ANTISEPSIS KIT) EACH NARE PRN (05:45)
[2017-07-20] MEDS ORDERED: ASPIRIN 325 MG TAB PO ONE (05:45)
[2017-07-20] MEDS ORDERED: HEPARIN-NS/PF FLUSH BAG 2,000 ML IV FLUSH ONE (06:43)
[2017-07-20] MEDS ORDERED: NOREPINEPHRINE 4 MG/4 ML AMP ONE (07:06)
[2017-07-20] MEDS ORDERED: PROTAMINE SULFATE 50 MG/5 ML VIAL ONE (07:06)
[2017-07-20] MEDS ORDERED: HEPARIN SODIUM - IV 10,000 UNITS/10 ML VIAL ONE (07:06)
--- NOTE | 2017-07-20 08:17 | MH ---
cc: Chace Morgan MD DATE OF ADMISSION: 07/20/2017 Cc: Dr. Norberto Moran INDICATION: Severe aortic stenosis. PRIMARY CARE DOCTOR: Dr. Norberto Moran HISTORY OF PRESENT ILLNESS: This is a very nice, 82-year-old female who I follow in the outpatient setting. She has had progressive shortness of breath now over the course of the past few months. Most recent echocardiogram showed progression of her aortic stenosis which was now severe. She underwent preoperative workup which included a cardiac catheterization revealing essentially normal coronary arteries. She was evaluated by both Dr. Richardson and Dr. Edward from cardiothoracic surgery and felt to be at increased risk for traditional surgical aortic valve replacement. For that reason, she was felt best to be handled with a trans-catheter aortic valve replacement. She has completed her preoperative workup and is now here today for admission and procedure. PAST MEDICAL HISTORY: 1. Diastolic chronic congestive heart failure. 2. Diabetes. 3. GERD. 4. Hypertension. 5. Hyperlipidemia. 6. Hypertensive heart disease. 7. Paroxysmal supraventricular tachycardia. ALLERGIES: PRIMIDONE. DULOXETINE. TETANUS. SOCIAL HISTORY: Denies any alcohol, tobacco or drug use. FAMILY HISTORY: Denies any family history of early coronary artery disease or sudden cardiac . MEDICATIONS: See med rec conciliation. REVIEW OF SYSTEMS: A 12-point review of systems was performed, negative unless otherwise noted in the History of Present Illness. PHYSICAL EXAMINATION: VITAL SIGNS: Temperature is 98.6, pulse 65, blood pressure is 136/72 mmHg. GENERAL: Alert and oriented x 3. In no acute distress. HEENT: Exam shows pupils are equal, reactive to light and accommodation, extraocular movements are intact. NECK: No elevation in jugular venous distention. No thyromegaly or lymphadenopathy. No carotid bruits. LUNGS: Clear to auscultation bilaterally. CARDIOVASCULAR EXAM: Regular rate and rhythm. A 3/6 systolic crescendo decrescendo murmur. No rubs or gallops. ABDOMINAL EXAM: Nontender, nondistended. Good bowel sounds, no hepatosplenomegaly. EXTREMITIES: No clubbing, cyanosis or edema. Good peripheral pulses. NEUROLOGIC: Cranial nerves intact. Motor and sensory grossly intact. LABORATORY DATA: Hemoglobin 13.6, platelet count is 256. BUN is 10, creatinine 0.87. PREOPERATIVE WORKUP: The patient's STS score calculated at 4.5%. [place] [employer] Class III. Cardiac mass index 41. Frailty 1:4. Baseline electrocardiogram - sinus bradycardia, no conduction disease. Pulmonary function testing shows severe airway obstruction, FEV1 0.92. Transthoracic echocardiogram shows a peak jet velocity of 4.38 m/second, mean gradient 34 mmHg, calculated aortic valve area is 0.6 cm2, ejection fraction 55-60%. Cardiac catheterization - Mild nonobstructive coronary disease. CT chest performed on April 14, 2017 - Short annulus diameter 19.7 mmHg, long annulus diameter is 25.1 mm, annular area of 392 mm2, sinus of Valsalva 33.8 mm, sinotubular junction diameter 30.3 mm, left coronary height 10.7 mm, right coronary height 17.4 mm. Minimal luminal diameter on the right is 7.6 mm, on the left 8.7 mm. ASSESSMENT: 1. Severe aortic stenosis. 2. Diabetes. 3. Hypertension. 4. Hyperlipidemia.. 5. Chronic diastolic congestive heart failure. PLAN: The risks, benefits and alternatives were discussed with the patient. The patient is agreeable to proceed. The patient is an intermediate high risk surgical candidate with severe pulmonary function restrictive disease. We will plan for trans-catheter aortic valve replacement today. We will be using an Hollis Perry S3 23-mm valve. The patient will be done under general anesthesia. We will be approaching from a right common femoral access. MD PETEY Pizarro/SB , 07:30 AM , 08:15 AM
[2017-07-20] MEDS ORDERED: IOHEXOL IV ONE (08:40)
--- NOTE | 2017-07-20 09:48 | PD.OP ---
cc: Mary Richardson MD; Kati Edward MD; Chace Morgan MD Operative Report Date of Surgery: Jul 20, 2017 Preoperative Diagnosis: (1) Diastolic CHF (2) Severe aortic stenosis Postoperative Diagnosis: same Procedure: Transcatheter aortic valve replacement with a 23 Sapian 3 tissue valve Balloon aortic valvuloplasty with a 20 Hollis balloon Percutaneous right and left femoral artery access with Preclose closure on right. Left femoral venous access Aortography Fluoroscopy Anesthesia: Dr. Gomes Surgeon: Kati Edward Co-surgeon - Dr. Morgan Change Control Manager(s): Dr. Richardson Operation and Findings: The risks, benefits, complications, treatment options, and expected outcomes were discussed with the patient. The possibilities of reaction to medication, pulmonary aspiration, perforation of viscus, bleeding, recurrent infection, the need for additional procedures, failure to diagnose a condition, and creating a complication requiring transfusion or operation were discussed with the patient. The patient concurred with the proposed plan, giving informed consent. The site of surgery properly noted/marked. The patient was taken to the hybrid operating room, identified as Laquita Conrad and the procedure verified as Transcatheter Aortic Valve Replacement. A Time Out was held and the above information confirmed. Standard monitoring lines and Barth catheter were placed. General anesthesia was induced. The patient was prepped and draped in a sterile fashion. Initially, left femoral arterial and venous access was acquired using a Seldinger percutaneous technique. The details of this procedure were dictated under separate note by cardiology. Once a pigtail was positioned in the aortic annulus and a temporary transvenous pacemaker wire was placed in the right ventricular apex and tested, the right femoral artery was accessed using a needle followed by a guidewire under fluoroscopic guidance. The patient was heparinized and 3 Perclose devices deployed for later closure. Serial dilators were used to dilate the right femoral artery to 14 [place] caliber. The Hollis sheath was then inserted. Arch aortography was performed to define the implant view. A balloon aortic valvuloplasty was then performed using a 20 x 4 balloon with the patient being paced at 180 beats per minute. A 23 Hollis Perry 3 transcatheter aortic valve was then positioned in the annulus and deployed with the patient being paced at 180 beats per minute. Following deployment, the valve apparatus was withdrawn and arch aortography and ROLF were performed to assess the valve. The valve had a tiny perivalvular leak. Gradients were then measured and the sheath was removed. Perclose sutures were secured and the patient was given Protamine. Sterile dressings were placed. At the end of the operation, all sponge, instruments, and needle counts were correct. The patient was transferred to the CVICU in stable condition. Findings: Tiny PVL noted at the close of the procedure. Implants: 23 S3 tissue valve Complications: none Disposition: to CVICU in stable condition Kati Edward MD Jul 20, 2017 09:48
[2017-07-20] MEDS ORDERED: SODIUM CHLOR 0.9% 1000 ML INJ 1,000 ML IV SCH (10:12)
[2017-07-20] MEDS ORDERED: ACETAMINOPHEN 325 MG TAB PO PRN (10:15)
[2017-07-20] MEDS ORDERED: BENZOCAINE-MENTHOL (SUGAR FREE) 15 MG-3.6 MG LOZENGE BUCCAL PRN (10:15)
[2017-07-20] MEDS ORDERED: MISC INFORMATION OTHER ONE (10:15)
[2017-07-20] MEDS ORDERED: DEXTROSE 50% IN WATER 50 ML VIAL(D50) IV PUSH PRN ×2 (10:15→11:45)
[2017-07-20] MEDS ORDERED: ONDANSETRON HCL 4 MG/2 ML VIAL IV PUSH PRN (10:15)
[2017-07-20] MEDS ORDERED: ATROPINE SULFATE 1 MG/ML VIAL IV PUSH PRN (10:15)
[2017-07-20] MEDS ORDERED: GLUCAGON 1 MG/ML VIAL OTHER PRN (10:15)
--- NOTE | 2017-07-20 10:39 | EKG ---
Date Performed: 07/20/2017 Time Performed: 06:08:20 PTAGE: 82 years EKG: Sinus rhythm . Poor R wave progression - probable normal variant Borderline ECG PREVIOUS TRACING : 04/14/2017 07.16 DOCTOR: Chace Morgan Interpretating Date/Time 07/20/2017 10:37:50
[2017-07-20] MEDS ORDERED: MIDAZOLAM HCL 2 MG/2 ML VIAL ONE (10:45)
--- NOTE | 2017-07-20 11:00 | MA ---
cc: Chace Morgan MD 07/20/2017 [facility] CR[facility] BOAT: Interventional cardiology, Chace Morgan MD PRIMARY SURGICAL STOCK PULLER: Kati Edward MD ASSIST SURGICAL STOCK PULLER: Mary Richardson MD PROCEDURE PERFORMED: 1. Left heart catheterization. 2. Ascending aortography. 3. Transcatheter aortic valve replacement. 4. Temporary transvenous pacemaker placement. 5. Aortic balloon valvuloplasty. METHOD: Risks, benefits, and alternatives discussed with the patient. The patient understood, consented. The patient was brought in to the catheterization lab, placed on the catheterization table. Bilateral groins were prepped and draped in a sterile fashion. Left groin was anesthetized and 5-Marshallese 11 cm sheath was placed in the femoral vein. A 5-Marshallese 11 cm sheath was placed in the left femoral artery. A micropuncture sheath was used to access the right common femoral artery. Digital subtraction angiography confirmed good placement. An 8-Marshallese sheath was advanced, followed by the dilator, followed by the 14-Marshallese Hollis delivery sheath. Two Perclose devices were deployed in a preclosed fashion. The transaortic catheter was advanced to the level of the descending aorta under fluoroscopic guidance. Ascending aortography was performed in an VARGAS cranial view based on CT scan prior calculations. We were able to put the right and left coronary cusps in parallax view. Ascending aorta was not significantly dilated and left and right coronaries were well visualized. AORTIC BALLOON VALVULOPLASTY: A 6-Marshallese JL1 catheter was advanced to the ascending aorta. Amplatz straight-tip wire was then navigated across the aortic valve with some difficulty. JL1 catheter was advanced into the left ventricle. A standard J-wire was then advanced into the left ventricle and the catheter removed. A pigtail catheter 6-Marshallese was advanced into the apex and a [place] [employer] wire was advanced into the apex, pigtail catheter removed. The 20 mm aortic balloon was advanced across the aortic valve during rapid pacing and 2 balloon valvuloplasties were performed with simultaneous aortography to confirm good flow into the left main coronary artery, given the low takeoff. Repeat transesophageal echocardiography following the deployment showed that there was moderate to severe aortic insufficiency, but the patient was tolerating things hemodynamically well. TRANSCATHETER AORTIC VALVE REPLACEMENT: An Hollis 23 mm Perry 3 valve was then advanced into the descending aorta. Balloon pulled back into the stent valve and advanced up and over the arch. The device was then positioned correctly within the parallax of the aortic valvular cusp and during rapid pacing, the aortic valve was slowly deployed. Repeat transesophageal echocardiogram in addition to repeat aortography confirmed good placement and well seated. There was trace paravalvular insufficiency which will hopefully resolve with the skirt and the Hollis valve. Due to a horizontal takeoff for the aortic valve itself, the valve plane was slightly high on the left coronary cusp, but valve was not obstructive to the outflow at all. POST DEPLOYMENT ROLF FINDINGS: Aortic valve area 1.9 cm. Mean aortic valve gradient 5 mmHg next peak velocity 1.64 cm/squared. No perivalvular leak. CONCLUSIONS: 1. Successful transcatheter aortic valve deployment with an Hollis Perry 3, 23 mm bioprosthetic valve. 2. Successful balloon aortic valvuloplasty. 3. Normal ascending aorta. PLAN: The patient will be monitored closely for any post-procedural complications. Right groin was closed with 2 Percloses with good hemostasis, 2 Mynx devices deployed in the left common femoral artery and vein with good hemostasis. The patient will be monitored closely for any bleeding or any arrhythmia. Hopefully anticipate mobilization later today along with extubation. Chace Morgan MD PETEY/TI , 10:24 AM , 10:58 AM JORGE LUIS
--- NOTE | 2017-07-20 11:21 | PD.PROCEDR ---
Procedure Note Procedure Procedure: Transesophageal Echocardiography Diagnosis: Severe aortic stenosis Indications: Preoperative planning for transcatheter aortic valve placement Consent: Obtained Anesthesia: General endotracheal anesthesia Description of the Procedure: The patient was sedated and mechanically ventilated. The echo probe was inserted easily and without resistance. At the conclusion of the procedure, the echo probe was removed. Please see detailed echocardiogram report for formal findings. Preliminary Findings (not confirmed): Pre-procedure: 1) Grossly preserved LV and RV function 2) trace to mild mitral regurgitation 3) severe aortic stenosis 4) no pericardial effusion 5) no evidence of intra-atrial shunting by color flow Doppler Post-procedure: 1) s/p successful placement of transcatheter bioprosthetic aortic valve 2) no evidence of bioprosthetic valve stenosis 3) no perivalvular leak 4) no pericardial effusion The patient tolerated the procedure well with no hemodynamic instability. There were no immediate complications noted. There was minimal EBL. I personally performed the procedure. Chau Morataya MD Jul 20, 2017 11:21
--- NOTE | 2017-07-20 11:26 | PD.CONS ---
[facility] Service Critical Care Medicine Consult Requested By Dr. Morgan Reason for Consult perioperative management of medical comorbidities Primary Care Physician Norberto Moran M.D. History of Present Illness This is an 82-year-old female with severe aortic stenosis who presents for elective transcatheter aortic valve replacement via iliac access. She underwent uncomplicated procedure. At the conclusion of the case she was extubated and taken to the CVICU for recovery. She was still somnolent from anesthesia and so complete review of systems is unobtainable. Review of Systems ROS Limitations: Clinical Condition, Altered Mental Status ROS Arousing from anesthesia Past Family Social History Allergies: Coded Allergies: brimonidine (Unverified Allergy, Severe, redness, 12/28/16) duloxetine (Verified Allergy, Severe, 04/14/17) tetanus toxoid, adsorbed (Unverified Adverse Reaction, Intermediate, SWELLING AT INJECTION SITE, 12/28/16) Past Medical History HTN Type 2 diabetes DDD GERD Hyperlipidemia Hypothyroidism Lymphedema Morbid obesity arthritis PSVT Past Surgical History Colonoscopy EGD hysterectomy Hip replacement Reported Medications Vitamin D3 (Cholecalciferol) 10,000 Unit Cap 10,000 Units PO Q7D Ranitidine (Ranitidine HCl) 150 Mg Tab 150 Mg PO BID Potassium Chloride ER (Potassium Chloride) 10 Meq Cap 10 Meq PO DAILY Lorazepam 0.5 Mg Tab 0.5 Mg PO Q12HR PRN Lisinopril 30 Mg Tab 30 Mg PO BID Levothyroxine (Levothyroxine Sodium) 100 Mcg Tab 100 Mcg PO DAILY [place] (Hydrocodone-Acetaminophen) 5 Mg-325 Mg Tab 1 Tab PO Q4H PRN Gabapentin 300 Mg Cap 600 Mg PO HS Furosemide 40 Mg Tab 40 Mg PO DAILY Doxepin (Doxepin HCl) 25 Mg Cap 25 Mg PO HS Atorvastatin (Atorvastatin Calcium) 80 Mg Tab 40 Mg PO HS Atenolol 50 Mg Tab 50 Mg PO DAILY Aspirin DR (Aspirin) 81 Mg Tabdr 81 Mg PO DAILY Amlodipine (Amlodipine Besylate) 5 Mg Tab 5 Mg PO BID Active Ordered Medications See MAR Family History Reviewed and found to be noncontributory to her acute illness Social History Denies ETOH, tobacco, drugs Physical Exam Vital Signs Vital Signs Date Time Temp Pulse Resp B/P (MAP) Pulse Ox O2 Delivery O2 Flow Rate FiO2 07/20/17 10:35 90 Nasal Cannula 6.00 07/20/17 10:13 95.1 96 16 111/52 (71) 91 115/25 (55) 3 06:16 98.6 65 18 136/72 (93) 96 Physical Exam GENERAL: Elderly female, lying in bed, arousing from anesthesia HEENT: Normocephalic. Atraumatic. Pupils equal, round, reactive, conjugate. Mucous membranes are moist NECK: Trachea is midline. There is no JVD. Right IJ introducer sheath with transvenous pacer in place, site clean dry and intact CHEST: Equal chest rise. Nasal cannula oxygen. CARDIOVASCULAR: Normal rate, regular rhythm. Sinus by telemetry. Transvenous pacer set VVI at a backup rate of 50, not currently paced ABDOMEN: Soft, nontender, nondistended. No guarding. MUSCULOSKELETAL: Pulses 2+. No peripheral edema. Bilateral groins with dressings intact, no evidence of hematoma. Distal pulses dopplerable. NEUROLOGICAL: RASS -2. Arousing from anesthesia. No focal deficits. Moves all extremities. Assessment and Plan Assessment and Plan Assessment: 82-year-old POD 0 s/p TAVR with iliac access. clinically improving. will monitor closely. s/p TAVR 07/20 with groin access - mivf - close uop monitoring - anticoagulation per Dr. Morgan - frequent neurovascular checks HTN - add back home anti-htn as needed - goal sbp < 180 Type 2 diabetes - SSI GERD - home h2 lurdes - advance diet as tolerated after flat time. Hyperlipidemia - restart home statin Hypothyroidism - restart home synthroid Morbid obesity - advance diet as tolerated - oob with assist. SCDs wean o2 for goal spo2 > 90% I.S. to bedside. Critical care medicine will continue to follow along as long as patient remains in the CVICU. Code Status Full Code Discussed Condition With Dr. Morgan, Chau Lepe MD Jul 20, 2017 11:26
[2017-07-20] MEDS ORDERED: MAGNESIUM SULFATE INJ 4 GM in SODIUM CHLORIDE 0.9% INJ 92 ML IV PRN (11:45)
[2017-07-20] MEDS ORDERED: MAGNESIUM OXIDE 400 MG TAB PO PRN (11:45)
[2017-07-20] MEDS ORDERED: POTASSIUM PHOSPHATE MONOBASIC 500 MG TAB PO PRN (11:45)
[2017-07-20] MEDS ORDERED: POTASSIUM PHOSPHATE MONOBASIC 500 MG TAB PO/TUBE PRN (11:45)
[2017-07-20] MEDS ORDERED: RESP: ALBUTEROL 2.5 MG/IPRATROPIUM 0.5 MG NEB (PRN) INH (11:45)
[2017-07-20] MEDS ORDERED: POTASSIUM PHOSPHATE INJ 30 MMOL in SODIUM CHLOR 0.9% 250 ML INJ 250 ML IV PRN (11:45)
[2017-07-20] MEDS ORDERED: SODIUM PHOSPHATE INJ 30 MMOL in SODIUM CHLOR 0.9% 250 ML INJ 240 ML IV PRN (11:45)
[2017-07-20] MEDS ORDERED: MAGNESIUM SULFATE INJ 2 GM in SODIUM CHLORIDE 0.9% INJ 96 ML IV PRN (11:45)
[2017-07-20] MEDS ORDERED: POTASSIUM CHLORIDE 25 MEQ EFFERVESCENT TAB PO PRN (11:45)
[2017-07-20] MEDS ORDERED: POTASSIUM CHLOR 20 MEQ PREMIX 100 ML IV PRN ×2 (11:45)
[2017-07-20] MEDS ORDERED: POTASSIUM CHLOR 40 MEQ PREMIX 100 ML IV PRN ×2 (11:45)
[2017-07-20] MEDS ORDERED: SODIUM CHLORID 0.9% 500 ML INJ 500 ML IV ONE (12:00)
[2017-07-20] MEDS ORDERED: LIDOCAINE HCL 1% PF 5 ML SYRINGE OTHER ONE (12:00)
[2017-07-20] MEDS: INSULIN NovoLIN REGULAR SUPPLEMENTAL SCALE SQ SCH ×3 (12:00→21:00)
[2017-07-20] MEDS ORDERED: PROPOFOL 200 MG/20 ML AMP IV ONE (12:00)
[2017-07-20] MEDS ORDERED: INSULIN NovoLIN REGULAR SUPPLEMENTAL SCALE SQ SCH (12:00)
[2017-07-20] MEDS ORDERED: ePHEDrine/NS 25 MG/5 ML SYRINGE IV ONE (12:00)
[2017-07-20] MEDS ORDERED: GLYCOPYRROLATE 1 MG/5 ML SYRINGE IV PUSH ONE (12:00)
[2017-07-20] MEDS ORDERED: NORMOSOL R INJ 2,000 ML IV ONE (12:00)
[2017-07-20] MEDS ORDERED: CLOPIDOGREL 300 MG TAB PO ONE (12:00)
[2017-07-20] MEDS ORDERED: PHENYLEPH/NS 1000 MCG/10 ML SYR IV ONE (12:00)
[2017-07-20] MEDS ORDERED: NEOSTIGMINE 5 MG/5 ML SYRINGE IV PUSH ONE (12:00)
[2017-07-20] MEDS ORDERED: NS 100 ML (PAB BAG) 100 ML IV ONE (12:00)
[2017-07-20] MEDS ORDERED: ROCURONIUM INJ 50 MG/5 ML SYRINGE IV PUSH ONE (12:00)
[2017-07-20] MEDS ORDERED: ACETAMINOPHEN/HYDROcodone 325 MG/5 MG TAB PO PRN (18:15)
[2017-07-20] MEDS: FAMOTIDINE 20 MG TAB PO SCH (21:00)
[2017-07-20] MEDS ORDERED: GABAPENTIN 300 MG CAP PO SCH (21:00)
[2017-07-20] MEDS: LISINOPRIL 10 MG TAB PO SCH (21:00)
[2017-07-20] MEDS ORDERED: ATORVASTATIN 40 MG TAB PO SCH (21:00)
[2017-07-21 03:00] VITALS: BP_SYST 129; BP_SYST 133; BP_DIAS 47; BP_DIAS 67; PULSE 74; RESP 18; TEMP 98.3; O2SAT 97
[2017-07-21] MEDS: INSULIN NovoLIN REGULAR SUPPLEMENTAL SCALE SQ SCH ×3 (03:00→12:00)
[2017-07-21 05:09] LABS: HEMATOCRIT 31.9 % (35.0-46.0); HEMOGLOBIN 10.9 GM/DL (11.6-15.3); MEAN CELL VOLUME 89.8 FL (80.0-100.0); MEAN CORPUSCULAR HEMOGLOBIN 30.6 PG (27.0-34.0); MEAN CORPUSCULAR HGB CONC 34.1 % (32.0-36.0); MEAN PLATELET VOLUME 7.1 FL (7.0-11.0); PLATELET COUNT 141 TH/MM3 (150-450); RED BLOOD COUNT 3.55 MIL/MM3 (4.00-5.30); RED CELL DISTRIBUTION WIDTH 14.7 % (11.6-17.2); WHITE BLOOD COUNT 6.8 TH/MM3 (4.0-11.0)
[2017-07-21 05:43] LABS: BICARBONATE 26.8 MEQ/L (21.0-32.0); CALCIUM 8.4 MG/DL (8.5-10.1); CREATININE 0.75 MG/DL (0.50-1.00)
[2017-07-21] MEDS ORDERED: LEVOTHYROXINE SODIUM 100 MCG TAB PO SCH (06:00)
[2017-07-21 07:00] VITALS: BP_SYST 139; BP_SYST 144; BP_DIAS 58; BP_DIAS 71; PULSE 71; PULSE 84; RESP 16; TEMP 97.8; O2SAT 94
--- NOTE | 2017-07-21 08:11 | HHI.DS ---
Discharge Summary Admission Date Discharge Date: Jul 21, 2017 Admitting Diagnosis Severe aortic stenosis (1) Pulmonary HTN ICD Codes: I27.0 - Pulmonary HTN Status: Chronic (2) Diabetes mellitus type 2, diet-controlled ICD Codes: E11.9 - Diabetes mellitus type 2, diet-controlled Status: Chronic (3) Severe aortic stenosis ICD Codes: I35.0 - Nonrheumatic aortic (valve) stenosis Status: Resolved (4) Diastolic CHF ICD Codes: I50.30 - Diastolic CHF Status: Chronic (5) Hypertension ICD Codes: I10 - Hypertension Status: Chronic Procedures Transcatheter aortic valve replacement with Hollis's Perry 3 bioprosthetic valve. CBC/BMP: 07/21/17 0424 07/21/17 0424 Significant Findings Laboratory Tests Test 07/21/17 04:24 Red Blood Count 3.55 MIL/MM3 (4.00-5.30) Hemoglobin 10.9 GM/DL (11.6-15.3) Hematocrit 31.9 % (35.0-46.0) Platelet Count 141 TH/MM3 (150-450) Random Glucose 115 MG/DL (74-106) Calcium Level 8.4 MG/DL (8.5-10.1) Chloride Level 108 MEQ/L (98-107) Estimat Glomerular Filtration Rate 74 ML/MIN (>89) PE at Discharge EYES: No scleral icterus. No injection or drainage. NECK: Supple, trachea midline. No JVD or lymphadenopathy. CARDIOVASCULAR: Regular rate and rhythm 1/6 sm RESPIRATORY: Breath sounds equal bilaterally. No accessory muscle use. GASTROINTESTINAL: Abdomen soft, non-tender, nondistended. MUSCULOSKELETAL: No cyanosis, or edema. BACK: Nontender without obvious deformity. No CVA tenderness. Hospital Course Patient underwent transcatheter aortic valve replacement on July 20, 2017. Procedure was uncomplicated. Patient was brought to the intensive care unit for recovery. Patient had [place] intrinsic rhythm without need for temporary transvenous pacing post procedure. Patient had no significant bleeding complications or arrhythmia. Patient up to a chair that evening in good spirits and otherwise clinically stable. Pt Condition on Discharge: Good Discharge Disposition: Discharge Home Discharge Instructions DIET: Follow Instructions for: Heart Healthy Diet, Diabetic Diet Activities you can perform: Weight Bearing as Connie Activities to avoid: Driving for 24 hrs Chace Morgan MD Jul 21, 2017 08:11
[2017-07-21] MEDS ORDERED: PLAV75TA29 PO (08:13)
[2017-07-21] MEDS ORDERED: FURO1TAB62 PO (08:22)
[2017-07-21] MEDS ORDERED: ASPIRIN EC 81 MG TABEC PO SCH (09:00)
[2017-07-21] MEDS ORDERED: CLOPIDOGREL 75 MG TAB PO SCH (09:00)
[2017-07-21] MEDS ORDERED: FUROSEMIDE 20 MG TAB PO SCH (09:00)
[2017-07-21] MEDS ORDERED: ATENOLOL 50 MG TAB PO SCH (09:00)
[2017-07-21] MEDS ORDERED: ASPIRIN 81 MG CHEW TAB PO SCH (09:00)
[2017-07-21] MEDS ORDERED: FUROSEMIDE 40 MG TAB PO SCH (09:00)
--- NOTE | 2017-07-21 09:33 | RADRPT ---
EXAM DATE/TIME: 07/21/2017 08:49 [facility] COMPARISON: CHEST SINGLE AP, April 14, 2017, 11:26. INDICATIONS : Status post transcatheter aortic valve replacement. MEDICAL HISTORY : Hypertension. SURGICAL HISTORY : Total left hip arthroplasty. ENCOUNTER: Subsequent ACUITY: 1 day PAIN SCORE: 0/10 LOCATION: chest FINDINGS: A single view of the chest demonstrates the lungs to be symmetrically aerated without evidence of mas s, infiltrate or effusion. The cardiomediastinal contours are unremarkable. Osseous structures are intact. Right-sided central line in place. No pneumothorax. There is a heart valve in place. CONCLUSION: No acute disease. No significant change has occurred. Larry Walton MD on July 21, 2017 at 9:30 Board Certified Radiologist. This report was verified electronically.
[2017-07-21 09:44] VITALS: O2SAT 94
[2017-07-21] MEDS: FAMOTIDINE 20 MG TAB PO SCH (09:57)
[2017-07-21] MEDS: LISINOPRIL 10 MG TAB PO SCH (09:57)
[2017-07-21 11:00] VITALS: BP 134/66; PULSE 78; PULSE 81; RESP 16; TEMP 97.9; O2SAT 94
--- NOTE | 2017-07-21 11:44 | ECHRPT ---
Indication: EF CHF CONCLUSIONS Normal left ventricular size. Wall thickness is normal. The left ventricular systolic function is low normal with an estimated ejection fraction in the rang e of 55%. Normally functioning aortic valve bioprosthesis. Trace paravalvular leak. Aortic valve mean gradient is 21.7 mmHg. Aortic valve area is 1.7 cm. BP: 136 / 72 HR: 65 Rhythm: MEASUREMENTS (Male / Female) Normal Values Technical Quality: 2D ECHO LVOT Diameter 1.9 cm DOPPLER AV Peak Velocity 312.3 cm/s AV Peak Gradient 39.0 mmHg AV Mean Gradient 21.7 mmHg AV Velocity Time Integral 63.1 cm LVOT Peak Velocity 178.0 cm/s LVOT Peak Gradient 12.7 mmHg LVOT Velocity Time Integral 37.8 cm LVOT Cardiac Index 3263.5 cm/minm AV Area Cont Eq vti 1.7 cm AV Area Cont Eq pk 1.6 cm TR Peak Velocity 285.0 cm/s TR Peak Gradient 32.5 mmHg FINDINGS LEFT VENTRICLE Normal left ventricular size. Wall thickness is normal. The left ventricular systolic function is low normal with an estimated ejection fraction in the rang e of 55%. RIGHT VENTRICLE Normal right ventricular size and systolic function. LEFT ATRIUM The left atrial size is normal. RIGHT ATRIUM The right atrial size is normal. ATRIAL SEPTUM Normal atrial septal thickness without atrial level shunting by limited color doppler interrogation. AORTA The aortic root and proximal ascending aorta are normal in size on limited imaging. MITRAL VALVE Mitral annular calcification is present. Trace mitral valve regurgitation. AORTIC VALVE Normally functioning aortic valve bioprosthesis. Trace paravalvular leak. Aortic valve mean gradient is 21.7 mmHg. Aortic valve area is 1.7 cm. TRICUSPID VALVE Structurally normal tricuspid valve. No tricuspid valve stenosis or regurgitation. PULMONARY VALVE The pulmonary valve is not well visualized. VESSELS The inferior vena cava is normal in size. PERICARDIUM No pericardial effusion. Chace Morgan MD, FACC (Electronically Signed) Final Date:21 July 2017 11:43
--- NOTE | 2017-07-21 12:44 | MB ---
cc: Kaiden Torres MD DATE OF CONSULT: 07/20/2017 REASON FOR CONSULTATION: Evaluation postop. HISTORY OF PRESENT ILLNESS: Mrs. Conrad is an 82-year-old female with history of high blood pressure, diabetes mellitus, hyperlipidemia, obesity, severe aortic stenosis, will undergo transcatheter aortic valve replacement. The procedure was uncomplicated. I was consulted for evaluation for possible conduction disturbance. The chart was reviewed, the patient was evaluated. ALLERGIES: BRIMONIDINE DULOXETINE TETANUS TOXOID SOCIAL HISTORY: Negative for smoking and drinking. FAMILY HISTORY: Noncontributory to her current medical condition. MEDICATIONS: She is on 1. Aspirin. 2. Plavix. 3. Tenormin. 4. Lasix. 5. Synthroid. 6. Lipitor. 7. Neurontin. 8. Prinivil. 9. Pepcid. 10. Insulin. 11. Gentry. REVIEW OF SYSTEMS: Currently, she is feeling better. No chest pain or chest discomfort. No fever. PHYSICAL EXAMINATION: GENERAL: Alert and fully oriented. VITAL SIGNS: Blood pressure 114/65, pulse 70, respiratory rate 18. GENERAL: Lying in bed. CARDIOVASCULAR: S1, S2, regular. No gallop, no murmur. ABDOMEN: Obese, no mass. EXTREMITIES: No edema. STUDY: Electrocardiogram: Sinus rhythm ST changes. LABORATORY DATA: Hemoglobin 32.6, white blood cell 5.9. Potassium 4.0, creatinine 0.87. ASSESSMENT, RECOMMENDATIONS: Ms. Conrad stable. There is no apparent conduction disturbance. She has no dizziness. No atrioventricular block. No change in electrocardiogram. At this point, my recommendation is continued current management. If the patient is stable in the morning, can be discharged home. I will see her only on an as needed basis. Kaiden Torres MD / , 11:16 PM , 12:10 AM
--- NOTE | 2017-07-21 14:15 | PD.CAR.PN ---
CVT Progress Note Subjective/Hospital Course: 82-year-old female with severe aortic stenosis who presents for elective transcatheter aortic valve replacement via iliac access. She underwent uncomplicated procedure. Past Medical History HTN Type 2 diabetes DDD GERD Hyperlipidemia Hypothyroidism Lymphedema Morbid obesity arthritis PSVT surgery: Transcatheter aortic valve replacement with a 23 Sapian 3 tissue valve Balloon aortic valvuloplasty with a 20 Hollis balloon Percutaneous right and left femoral artery access with Preclose closure on right. Left femoral venous access ECHO The left ventricular systolic function is low normal with an estimated ejection fraction in the range of 55%. Normally functioning aortic valve bioprosthesis. Trace paravalvular leak. Aortic valve mean gradient is 21.7 mmHg. Aortic valve area is 1.7 cm. 07/21 doing well in NSR possible dc home today Objective: GENERAL: A&O x 3 SKIN: Warm and dry. dressing to right neck and both groins HEAD: Normocephalic. EYES: No scleral icterus. No injection or drainage. NECK: Supple, trachea midline. No JVD or lymphadenopathy. CARDIOVASCULAR: Regular rate and rhythm without murmurs, gallops, or rubs. RESPIRATORY: Breath sounds equal bilaterally. No accessory muscle use. GASTROINTESTINAL: Abdomen soft, non-tender, nondistended. MUSCULOSKELETAL: No cyanosis, or edema. BACK: Nontender without obvious deformity. No CVA tenderness. Vital Signs Date Time Temp Pulse Resp B/P (MAP) Pulse Ox O2 Delivery O2 Flow Rate FiO2 07/21/17 11:00 81 07/21/17 11:00 97.9 78 16 134/66 (88) 94 Arterial Line 07/21/17 09:44 94 21 07/21/17 07:00 84 07/21/17 07:00 74 07/21/17 07:00 97.8 71 16 139/71 (93) 94 144/58 (86) 07/21/17 03:00 74 07/21/17 03:00 74 07/21/17 03:00 98.3 74 18 129/67 (87) 97 133/47 (75) 07/20/17 23:00 75 07/20/17 23:00 75 07/20/17 23:00 98.3 75 18 120/62 (81) 96 121/47 (71) 07/20/17 20:50 18 07/20/17 19:52 93 07/20/17 19:00 97.8 75 22 138/66 (90) 98 142/51 (81) 07/20/17 19:00 75 07/20/17 19:00 75 07/20/17 15:00 97.8 69 16 138/62 (87) 97 149/65 (93) 07/20/17 15:00 69 07/20/17 15:00 62 Labs: Laboratory Tests Test 07/21/17 04:24 White Blood Count 6.8 TH/MM3 (4.0-11.0) Red Blood Count 3.55 MIL/MM3 (4.00-5.30) Hemoglobin 10.9 GM/DL (11.6-15.3) Hematocrit 31.9 % (35.0-46.0) Mean Corpuscular Volume 89.8 FL (80.0-100.0) Mean Corpuscular Hemoglobin 30.6 PG (27.0-34.0) Mean Corpuscular Hemoglobin Concent 34.1 % (32.0-36.0) Red Cell Distribution Width 14.7 % (11.6-17.2) Platelet Count 141 TH/MM3 (150-450) Mean Platelet Volume 7.1 FL (7.0-11.0) Blood Urea Nitrogen 11 MG/DL (7-18) Creatinine 0.75 MG/DL (0.50-1.00) Random Glucose 115 MG/DL (74-106) Calcium Level 8.4 MG/DL (8.5-10.1) Sodium Level 143 MEQ/L (136-145) Potassium Level 3.5 MEQ/L (3.5-5.1) Chloride Level 108 MEQ/L (98-107) Carbon Dioxide Level 26.8 MEQ/L (21.0-32.0) Anion Gap 8 MEQ/L (5-15) Estimat Glomerular Filtration Rate 74 ML/MIN (>89) Result Diagram: 07/21/174 07/21/17 0424 Telemetry: NSR (1) S/P TAVR (transcatheter aortic valve replacement) Plan: rhythm stable all dc orders per Minor stable from [facility] for discharge (2) Severe aortic stenosis (3) Diabetes mellitus type 2, diet-controlled Shannan Welch Jul 21, 2017 14:15
--- NOTE | 2017-07-21 18:24 | EKG ---
Date Performed: 07/21/2017 Time Performed: 05:05:38 PTAGE: 82 years EKG: Sinus rhythm Inferior/lateral ST-T changes are nonspecific Borderline ECG PREVIOUS TRACING : 07/20/2017 06.08 Compared to previous tracing, nonspecific ST/T changes are now present. DOCTOR: Andrea Pro Interpretating Date/Time 07/21/2017 18:23:25
== END 2017-07-21 15:35 | disposition home or self-care (01) | DRG 267 ==
LOC: HDOC 05:13 → HDIC 05:13 → EDSTATUS 08:00 → HDOC 10:07 → HCVI 10:08 → HDOC 07-21 15:35
PROVIDERS: ADMIT Internal Medicine; ATTEND Internal Medicine
PROC: B246ZZ4 Ultrasonography of Right and Left Heart, Transesophageal (ICD-10-PCS; 2017-07-20)
PROC: 02RF38Z Replacement of Aortic Valve with Zooplastic Tissue, Percutaneous Approach (ICD-10-PCS; principal; 2017-07-20 08:00)
PROC: 027F3ZZ Dilation of Aortic Valve, Percutaneous Approach (ICD-10-PCS; 2017-07-20 08:00)
PROC: B3101ZZ Fluoroscopy of Thoracic Aorta using Low Osmolar Contrast (ICD-10-PCS; 2017-07-20 08:00)
DX: I35.0 Nonrheumatic aortic (valve) stenosis (principal); I50.32 Chronic diastolic (congestive) heart failure; I11.0 Hypertensive heart disease with heart failure; I27.20 Pulmonary hypertension, unspecified; Z68.41 Body mass index [BMI] 40.0-44.9, adult; I47.1 Supraventricular tachycardia; E11.9 Type 2 diabetes mellitus without complications; E78.5 Hyperlipidemia, unspecified; E03.9 Hypothyroidism, unspecified; K21.9 Gastro-esophageal reflux disease without esophagitis; E66.01 Morbid (severe) obesity due to excess calories; Z00.6 Encounter for examination for normal comparison and control in clinical research program; Z88.7 Allergy status to serum and vaccine; Z88.8 Allergy status to other drugs, medicaments and biological substances
CPT/HCPCS: 33210; 33361; 71045; 80048; 82948; 85002; 85027; 86920; 92986; 93005; 93308; 94150; 94640; 94667; 94668; C1760; C1769; C1893; G0269; J0690; J1644; J2250; J2370; J2710; J2720; J3010; J7030; J7040

== ENCOUNTER 2017-09-10 11:30 | Emergency (ER) | payer MEDICARE ==
[~2017-09-10 11:30] MED LIST changes: +FURO1TAB62 PO; -FURO40TA PO; +PLAV75TA29 PO
[2017-09-10 11:33] VITALS: BP 153/67; PULSE 71; RESP 16; TEMP 97.6; O2SAT 99
[2017-09-10] MEDS ORDERED: VITA10002 PO (12:05)
[2017-09-10] MEDS ORDERED: FURO1TAB60 PO (12:05)
[2017-09-10] MEDS ORDERED: LISI-515 PO (12:05)
[2017-09-10] MEDS ORDERED: ATOR40TA16 PO (12:05)
[2017-09-10] MEDS ORDERED: VITA100018 PO (12:05)
--- NOTE | 2017-09-10 12:18 | RADRPT ---
EXAM DATE/TIME: 09/10/2017 12:09 [facility] COMPARISON: CHEST SINGLE AP, July 21, 2017, 8:49. INDICATIONS : Cough and shortness of breath. MEDICAL HISTORY : Hypertension. Diabetes. SURGICAL HISTORY : Heart valve replacement. ENCOUNTER: Initial ACUITY: 4 - 6 days PAIN SCORE: 0/10 LOCATION: Bilateral chest FINDINGS: Cardiomegaly. Clear lungs. Degenerative changes of the spine and aortic calcification. A cardiac valv ular prosthesis is noted. CONCLUSION: No acute disease. Hang Brown MD on September 10, 2017 at 12:15 Board Certified Radiologist. This report was verified electronically.
--- NOTE | 2017-09-10 12:28 | PD ---
HPI Chief Complaint: Cold / Flu Symptoms Time Seen by Provider: 11:41 Travel History International Travel<30 days: No Contact w/Intl Traveler<30days: No Traveled to known affect area: No History of Present Illness HPI 82y female with a history of hypertension, hyperlipidemia, prediabetes, lower extremity lymphedema, GERD and a recent TAVR presents emergency department presents emergency department for evaluation of a dry cough that has been present for 1 week. Patient states that her cough is worse at night. She denies any production of this cough. Denies shortness of breath or chest pain. Denies fevers or chills. Denies sick contacts. Says she does have history of seasonal allergies and believe this is the result of them. As mentioned previously, she had a TAVR performed July 20 and started Plavix July 21. She is concerned that maybe Plavix is causing her cough she saw that it was a side effect on the medication. Says she has been able to perform cardiac rehab without any issues. Her last visit was yesterday. Denies tobacco or alcohol use. Her quartz miner is Dr. melton. Her primary care physician is Dr. Collins. Of note, patient had a urinary tract infection 2-3 weeks ago was treated with ampicillin and is cleared without any issues. She denies any history of allergy to the penicillins. PFSH Past Medical History Arthritis: Yes Autoimmune Disease: No Anxiety: Yes Depression: No Heart Rhythm Problems: Yes (ARRHYTHMIA,PVC'S, ) Cancer: No Cardiovascular Problems: Yes High Cholesterol: Yes Chest Pain: No Congestive Heart Failure: Yes Cerebrovascular Accident: No Coronary Artery Disease: Yes Diabetes: Yes (pre) Diminished Hearing: No Endocrine: Yes Gastrointestinal Disorders: Yes (GERD) GERD: Yes Glaucoma: Yes (HX OF BILATERAL EYES) Genitourinary: Yes (FIRST STAGE KIDNEY DISEASE) Hepatitis: Yes (HX OF HEP A) Hiatal Hernia: Yes Hypertension: Yes Immune Disorder: No Kidney Stones: Yes Musculoskeletal: Yes (ARITHRITIS S) Neurologic: Yes (LOWER EXTREMITIY NEUROPATHY) Psychiatric: No Reproductive: No Respiratory: No (PULMANARY HTN) Integumentary: No Immunizations Current: Yes Migraines: No Myocardial Infarction: Yes (unknown date) Seizures: No Thyroid Disease: Yes (HYPOTHYROID) Ulcer: No PNEUMOCCOCAL Vaccine (Year): 1 Menopausal: Yes : 2 Para: 2 Past Surgical History Abdominal Surgery: Yes Cardiac Surgery: No Ear Surgery: Yes Endocrine Surgery: No Eye Surgery: Yes (MAYURI CATARACT REMOVAL) Gynecologic Surgery: Yes ( HYSTERECTOMY) Hysterectomy: Yes Joint Replacement: Yes (TOTAL LEFT HIP (x2), ADDITIONAL HARDWARE) Oral Surgery: Yes Pacemaker: No Thoracic Surgery: No Other Surgery: Yes (HYSTERECTOMY, HIP L REPLACEMENT-WITH PLATES/WIRE, EAR R) Social History Alcohol Use: No Tobacco Use: No Substance Use: No Allergies-Medications (Allergen,Severity, Reaction): Coded Allergies: brimonidine (Verified Allergy, Severe, redness, 09/10/17) duloxetine (Verified Allergy, Severe, swelling, 09/10/17) tetanus toxoid, adsorbed (Verified Allergy, Intermediate, SWELLING AT INJECTION SITE, 09/10/17) Reported Meds & Prescriptions Reported Meds & Active Scripts Active Tessalon Perles (Benzonatate) 100 Mg Cap 100 Mg PO TID PRN 7 Days Plavix (Clopidogrel Bisulfate) 75 Mg Tab 75 Mg PO DAILY Reported Vitamin B-12 (Cyanocobalamin) 1,000 Mcg Tab 1,000 Mcg PO DAILY Lasix (Furosemide) 40 Mg Tab 40 Mg PO DAILY Vitamin D3 (Cholecalciferol) 1,000 Unit Tab 1,000 Units PO DAILY Lisinopril 20 Mg Tab 20 Mg PO BID Atorvastatin (Atorvastatin Calcium) 40 Mg Tab 40 Mg PO HS Ranitidine (Ranitidine HCl) 150 Mg Tab 150 Mg PO BID Potassium Chloride ER (Potassium Chloride) 10 Meq Cap 10 Meq PO DAILY Lorazepam 0.5 Mg Tab 0.5 Mg PO Q12HR PRN Levothyroxine (Levothyroxine Sodium) 100 Mcg Tab 100 Mcg PO DAILY Waldron (Hydrocodone-Acetaminophen) 5 Mg-325 Mg Tab 1 Tab PO Q4H PRN Gabapentin 300 Mg Cap 600 Mg PO HS Doxepin (Doxepin HCl) 25 Mg Cap 25 Mg PO HS Atenolol 50 Mg Tab 50 Mg PO DAILY Aspirin DR (Aspirin) 81 Mg Tabdr 81 Mg PO DAILY Amlodipine (Amlodipine Besylate) 5 Mg Tab 5 Mg PO BID Review of Systems Except as stated in HPI: all other systems reviewed are Neg Physical Exam Narrative GENERAL: WD,WN, patient not actively coughing while in the room SKIN: Warm and dry. HEAD: Atraumatic. Normocephalic. EYES: Pupils equal and round. No scleral icterus. No injection or drainage. ENT: No nasal bleeding or discharge. Mucous membranes pink and moist. NECK: Trachea midline. No JVD. CARDIOVASCULAR: Regular rate and rhythm. RESPIRATORY: No accessory muscle use. Clear to auscultation. Breath sounds equal bilaterally. GASTROINTESTINAL: Abdomen soft, non-tender, nondistended. Hepatic and splenic margins not palpable. no CVAT MUSCULOSKELETAL: Extremities without clubbing, cyanosis. No obvious deformities. Bilateral lower extremity edema, normal per patient NEUROLOGICAL: Awake and alert. No obvious cranial nerve deficits. Motor grossly within normal limits. Five out of 5 muscle strength in the arms and legs. Normal speech. PSYCHIATRIC: Appropriate mood and affect; insight and judgment normal. Data Data Last Documented VS Vital Signs Date Time Temp Pulse Resp B/P (MAP) Pulse Ox O2 Delivery O2 Flow Rate FiO2 09/10/17 12:40 97.9 83 17 130/77 (94) 99 09/10/17 11:46 Room Air Orders Orders Chest, Pa & Lat (09/10/17 ) Ed Discharge Order (09/10/17 12:29) [facility] Medical Decision Making Medical Screen Exam Complete: Yes Emergency Medical Condition: Yes Differential Diagnosis Allergic rhinitis, URI, GERD, medication induced cough Narrative Course 82-year-old female presents emergency department evaluation of a dry cough that started 1 week ago. Patient recently started Plavix for the TAVR that was completed in July. Patient takes lisinopril for her blood pressure and has been taking this medication for several years. She also has a history of gastric reflux but denies any exacerbation or worsening of the symptoms. Vital signs are stable. Physical exam findings are unremarkable. Chest x-ray without acute process. Patient be discharged with Brian Dempsey. Advised to consider using over-the- counter antihistamines for possible allergic component. Advised that she should follow-up with a primary care physician for further evaluation. Consider learning specialist as well. Diagnosis Primary Impression: Cough in adult patient Referrals: Ear / Nose / Throat Specialist Primary Care Physician Additional Instructions: You may use a drop of honey and lemon in a cup of warm water to soothe your cough. (If you are greater than 1 year old ) Ensure good hydration and a nutritious diet. Note that viral infection symptoms may last for several weeks if you have a viral illness. Follow up with your primary physician within 2-3 days. Return to the ED for worsening or persistent symptoms. Consider follow-up with an learning specialist for further evaluation. Scripts Benzonatate (Tessalon Perles) 100 Mg Cap 100 MG PO TID Y for COUGH for 7 Days, CAP 0 Refills Prov: Maicol Quiroz MD 09/10/17 Disposition: 01 DISCHARGE HOME Condition: Stable Nikki Mackey Sep 10, 2017 12:28
[2017-09-10] MEDS ORDERED: BENZ100 PO (12:29)
[2017-09-10 12:40] VITALS: BP 130/77; TEMP 97.9
== END 2017-09-10 12:40 | disposition home or self-care (01) ==
LOC: NEPC 11:30
DX: R05 Cough (principal); E03.9 Hypothyroidism, unspecified; E78.00 Pure hypercholesterolemia, unspecified; I11.0 Hypertensive heart disease with heart failure; I50.9 Heart failure, unspecified; I25.10 Atherosclerotic heart disease of native coronary artery without angina pectoris; K21.9 Gastro-esophageal reflux disease without esophagitis; Z79.02 Long term (current) use of antithrombotics/antiplatelets
CPT/HCPCS: 71046; 99283

== ENCOUNTER 2018-04-18 16:15 | Inpatient (IN) ==
--- NOTE | 2018-04-18 19:48 | ED ---
HPI General Chief complaint: Hypertension Stated complaint: BP Complaint/Urgent Care Sent Time Seen by Provider: 04/18/18 19:16 Source: patient Mode of arrival: ambulatory Limitations: no limitations History of Present Illness HPI narrative: 83-year-old female with PMH of aortic valve replacement in July 2017, hypertension, HLD, hypothyroidism, GERD, depression presents to the ED via private vehicle for evaluation of labile blood pressure and nausea. Patient states that this is been ongoing for the last few weeks after the environmental program manager changed her blood pressure medications. She states that she is not taking any blood thinners. She notes that her systolic blood pressure has varied between 170 and 120. She endorses taking 5 BP medications as well as a transdermal patch today. She denies headache, dizziness, chest pain, shortness of breath, cough, abdominal pain, vomiting, changes in bowel habits, dysuria. She states that she called her environmental program manager, Dr. Morgan. She states that he attempted to reassure her. Despite this she went to the urgent care and was encouraged to come here for evaluation. Related Data Home Medications Medication Instructions Recorded Confirmed atenolol 25 mg PO DAILY 04/18/18 04/18/18 escitalopram oxalate 10 mg PO DAILY 04/18/18 04/18/18 gabapentin 600 mg PO HS 04/18/18 04/18/18 hydralazine 25 mg PO TID 04/18/18 04/18/18 levothyroxine [Levoxyl] 100 mcg PO DAILY 04/18/18 04/18/18 lisinopril 20 mg PO BID 04/18/18 04/18/18 lorazepam 0.5 mg PO TID 04/18/18 04/18/18 ranitidine HCl 150 mg PO BID 04/18/18 04/18/18 Allergies Allergy/AdvReac Type Severity Reaction Status Date / Time brimonidine Allergy Severe redness Verified 04/18/18 16:35 duloxetine Allergy Severe swelling Verified 04/18/18 16:35 tetanus toxoid, adsorbed Allergy Intermediate SWELLING Verified 04/18/18 16:35 AT INJECTION SITE Review of Systems ROS: all other systems reviewed are negative [facility] Social History Social History Substance History: No History of Abuse Second Hand Smoke Exposure: No Smoking Status: Never smoker How Often Do You Have a Drink Containing Alcohol: Never Recent Travel in [facility] within the Last 8 Weeks: No Recent Out of Country Travel within the Last 8 Weeks: No Immunization History Tetanus Immunization: >5 Years Exam Narrative Exam Narrative: GENERAL: Well-nourished, well-developed, pleasant white female in no acute distress. SKIN: Focused skin assessment warm/dry. HEAD: Atraumatic. Normocephalic. EYES: Pupils equal and round. No scleral icterus. No injection or drainage. ENT: No nasal bleeding or discharge. Mucous membranes pink and moist. NECK: Trachea midline. No JVD. CARDIOVASCULAR: Regular rate and rhythm. No murmur appreciated. RESPIRATORY: No accessory muscle use. Clear to auscultation. Breath sounds equal bilaterally. GASTROINTESTINAL: Abdomen soft, non-tender, nondistended. Hepatic and splenic margins not palpable. MUSCULOSKELETAL: No obvious deformities. No clubbing. No cyanosis. 2+ edema to the mid thighs bilaterally. NEUROLOGICAL: Awake and alert. No obvious cranial nerve deficits. Motor grossly within normal limits. Normal speech. PSYCHIATRIC: Appropriate mood and affect; insight and judgment normal. Course Initial Documented Vital Signs Temperature 97.6 F 04/18/18 16:32 Pulse Rate 74 04/18/18 16:32 Respiratory Rate 20 04/18/18 16:32 Blood Pressure 186/80 H 04/18/18 16:32 Pulse Oximetry 97 04/18/18 16:32 Last Documented Vital Signs Temperature 97.6 F 04/19/18 08:00 Pulse Rate 70 04/19/18 08:00 Respiratory Rate 17 04/19/18 08:00 Blood Pressure 152/67 H 04/19/18 08:00 Pulse Oximetry 94 L 04/19/18 08:00 Medical Decision Making [facility] Narrative Medical decision making narrative: .83-year-old female with PMH of aortic valve replacement in July 2017, hypertension, HLD, hypothyroidism, GERD, depression presents to the ED via private vehicle for evaluation of labile blood pressure and nausea. Patient states that this is been ongoing for the last few weeks after the environmental program manager changed her blood pressure medications. BP 186/80 on presentation. Physical exam reveals a pleasant white female in no acute distress. No appreciable M/R/G. Lower extremity edema noted. Patient was administered 1/2 L of normal saline. Lab work reveals sodium of 121. No other acute findings noted. I discussed the results of the workup with the patient as well as the need for admission. She is agreeable to the plan. I spoke with Dr. Ibrahim who agrees to accept the patient to the medicine service under Dr. Craig. Please see their notes for disposition. Medical Screen Exam Complete: Yes Emergency Medical Condition: Yes Differential Diagnosis Differential Diagnosis: Hypertension versus metabolic derangement versus ACS versus medication side effect versus other Lab Data Result diagrams: 04/19/18 03:06 04/19/18 03:06 Lab Results 04/18/18 04/18/18 04/18/18 Range/Units 20:00 20:00 20:00 WBC 6.7 (4.0-11.0) th/mm3 RBC 3.99 L (4.00-5.30) mil/mm3 Hgb 12.2 (11.6-15.3) gm/dL Hct 35.9 (35.0-46.0) % MCV 90.1 (80.0-100.0) fL MCH 30.7 (27.0-34.0) pg MCHC 34.1 (32.0-36.0) % RDW 14.9 (11.6-17.2) % Plt Count 207 (150-450) th/mm3 MPV 7.1 (7.0-11.0) fL Neut % (Auto) 65.9 (16.0-70.0) % Lymph % (Auto) 22.8 (9.0-44.0) % [place] % (Auto) 9.8 H (0.0-8.0) % Eos % (Auto) 0.6 (0.0-4.0) % Baso % (Auto) 0.9 (0.0-2.0) % Neut # (Auto) 4.4 (1.8-7.7) th/mm3 Lymph # (Auto) 1.5 (1.0-4.8) th/mm3 [place] # (Auto) 0.7 (0.0-0.9) th/mm3 Eos # (Auto) 0.0 (0.0-0.4) th/mm3 Baso # (Auto) 0.1 (0.0-0.2) th/mm3 WBC Differential . Differential Comment Auto diff final Sodium 121 L* (136-145) meq/L Potassium 4.4 (3.5-5.1) meq/L Chloride 90 L (98-107) meq/L Carbon Dioxide 22.9 (21.0-32.0) meq/L Anion Gap 8 (5-15) meq/L BUN 11 (7-18) mg/dL Creatinine 0.86 (0.50-1.00) mg/dL Estimated GFR 63 L (>89) mL/min Random Glucose 110 H (74-106) mg/dL Calcium 9.7 (8.5-10.1) mg/dL Magnesium 2.1 (1.5-2.5) mg/dL Total Bilirubin 0.6 (0.2-1.0) mg/dL AST 22 (15-37) U/L ALT 38 (10-53) U/L Alkaline Phosphatase 61 (45-117) U/L Troponin I Less than 0.02 L (0.02-0.05) ng/mL B-Natriuretic Peptide 214 H (0-100) pg/mL Total Protein 7.1 (6.4-8.2) g/dL Albumin 3.9 (3.4-5.0) g/dL Urine Color (Yellw/Straw) Urine Clarity (Clear) Urine pH (5.0-8.5) Ur Specific [place] (1.002-1.035) Urine Protein (Neg-Trace) mg/dL Urine Glucose (UA) (Negative) mg/dL Urine Ketones (Negative) mg/dL Urine Occult Blood (Negative) Urine Nitrate (Negative) Urine Bilirubin (Negative) Urine Urobilinogen (Less than 2) mg/dL Ur Leukocyte Esterase (Negative) Urine RBC (0-3) /hpf Urine WBC (0-5) /hpf Ur Squamous Epith Cells (0-5) /hpf Urine Mucus (Occasional) /lpf Micro UA Comment Ur Microscopic Review Urine Culture Comments 04/18/18 04/19/18 04/19/18 Range/Units 23:45 03:06 03:06 WBC 7.0 (4.0-11.0) th/mm3 RBC 3.64 L (4.00-5.30) mil/mm3 Hgb 11.4 L (11.6-15.3) gm/dL Hct 33.3 L (35.0-46.0) % MCV 91.7 (80.0-100.0) fL MCH 31.3 (27.0-34.0) pg MCHC 34.1 (32.0-36.0) % RDW 15.1 (11.6-17.2) % Plt Count 183 (150-450) th/mm3 MPV 7.3 (7.0-11.0) fL Neut % (Auto) 58.5 (16.0-70.0) % Lymph % (Auto) 27.3 (9.0-44.0) % [place] % (Auto) 12.1 H (0.0-8.0) % Eos % (Auto) 1.4 (0.0-4.0) % Baso % (Auto) 0.7 (0.0-2.0) % Neut # (Auto) 4.1 (1.8-7.7) th/mm3 Lymph # (Auto) 1.9 (1.0-4.8) th/mm3 [place] # (Auto) 0.8 (0.0-0.9) th/mm3 Eos # (Auto) 0.1 (0.0-0.4) th/mm3 Baso # (Auto) 0.1 (0.0-0.2) th/mm3 WBC Differential . Differential Comment Auto diff final Sodium 125 L (136-145) meq/L Potassium 4.6 (3.5-5.1) meq/L Chloride 93 L (98-107) meq/L Carbon Dioxide 25.7 (21.0-32.0) meq/L Anion Gap 6 (5-15) meq/L BUN 10 (7-18) mg/dL Creatinine 0.86 (0.50-1.00) mg/dL Estimated GFR 63 L (>89) mL/min Random Glucose 100 (74-106) mg/dL Calcium 9.2 (8.5-10.1) mg/dL Magnesium (1.5-2.5) mg/dL Total Bilirubin (0.2-1.0) mg/dL AST (15-37) U/L ALT (10-53) U/L Alkaline Phosphatase (45-117) U/L Troponin I (0.02-0.05) ng/mL B-Natriuretic Peptide (0-100) pg/mL Total Protein (6.4-8.2) g/dL Albumin (3.4-5.0) g/dL Urine Color Yellow (Yellw/Straw) Urine Clarity Clear (Clear) Urine pH 6.0 (5.0-8.5) Ur Specific [place] 1.008 (1.002-1.035) Urine Protein Negative (Neg-Trace) mg/dL Urine Glucose (UA) Negative (Negative) mg/dL Urine Ketones Trace H (Negative) mg/dL Urine Occult Blood Negative (Negative) Urine Nitrate Negative (Negative) Urine Bilirubin Negative (Negative) Urine Urobilinogen Less than 2 (Less than 2) mg/dL Ur Leukocyte Esterase Trace H (Negative) Urine RBC Less than 1 (0-3) /hpf Urine WBC 5 (0-5) /hpf Ur Squamous Epith Cells 1 (0-5) /hpf Urine Mucus Few H (Occasional) /lpf Micro UA Comment Culture not ind Ur Microscopic Review Not Reportable Urine Culture Comments Culture not ind Imaging Data Radiologist's impression: Chest X-Ray 04/18/18 00:00 CONCLUSION: Negative examination. Head CT 04/19/18 00:00 CONCLUSION: 1. No acute intracranial abnormality. 2. Atrophy and chronic small vessel ischemic change. . ECG Data Attestation: I personally reviewed and interpreted this ECG as follows: Interpretation: Rate 62, sinus rhythm. Normal axis. LBBB. No acute ST changes. Reviewed by Dr. Spear. Discharge Plan Discharge Disposition Patient Disposition: ED Admit(ED Internal Use Only) Discharge Order Discharge Orders: ED Use Only Admit Order (Routine); Ordered 04/18/18 Ordered By: Jackie Carlos Physicians Team ED Provider: Lary Spear ED Midlevel Provider: Jackie Carlos Primary Care Provider: Jameel Mcneil Attending Provider: Pancho Craig Status ED Status: Left Department Discharge Information Discharge Date/Time: 04/19/18 03:39
[2018-04-18 20:22] LABS: Baso # (Auto) 0.1 th/mm3 (0.0-0.2); Baso % (Auto) 0.9 % (0.0-2.0); Eos % (Auto) 0.6 % (0.0-4.0); Hematocrit 35.9 % (35.0-46.0); Hemoglobin 12.2 gm/dL (11.6-15.3); Lymph # (Auto) 1.5 th/mm3 (1.0-4.8); Lymph % (Auto) 22.8 % (9.0-44.0); Mean Corpuscular HGB Conc 34.1 % (32.0-36.0); Mean Corpuscular Hemoglobin 30.7 pg (27.0-34.0); Mean Corpuscular Volume 90.1 fL (80.0-100.0); Mean Platelet Volume 7.1 fL (7.0-11.0); Mono # (Auto) 0.7 th/mm3 (0.0-0.9); Mono % (Auto) 9.8 % (0.0-8.0); Neut # (Auto) 4.4 th/mm3 (1.8-7.7); Neut % (Auto) 65.9 % (16.0-70.0); Platelet Count 207 th/mm3 (150-450); Red Blood Count 3.99 mil/mm3 (4.00-5.30); Red Cell Distribution Width 14.9 % (11.6-17.2); White Blood Count 6.7 th/mm3 (4.0-11.0)
[2018-04-18 20:49] LABS: Alanine Aminotransferase 38 U/L (10-53); Albumin 3.9 g/dL (3.4-5.0); Alkaline Phosphatase 61 U/L (45-117); Anion Gap 8 meq/L (5-15); Aspartate Aminotransferase 22 U/L (15-37); Blood Urea Nitrogen 11 mg/dL (7-18); Calcium 9.7 mg/dL (8.5-10.1); Carbon Dioxide 22.9 meq/L (21.0-32.0); Chloride 90 meq/L (98-107); Glomerular Filtration Rate 63 mL/min (>89); Glucose,Random 110 mg/dL (74-106); Magnesium 2.1 mg/dL (1.5-2.5); Potassium 4.4 meq/L (3.5-5.1); Total Protein 7.1 g/dL (6.4-8.2)
[2018-04-18 20:51] LABS: Sodium 121 meq/L (136-145)
[2018-04-18] MEDS ORDERED: Sodium Chlor 0.9% Inj 500 ML IV.SIG ONE (20:58)
--- NOTE | 2018-04-18 21:24 | ECG ---
Date Performed: 04/18/2018 Time Performed: 19:41:42 PTAGE: 83 years EKG: Sinus rhythm LEFT BUNDLE BRANCH BLOCK ABNORMAL ECG Compared to PREVIOUS TRACING , LBBB now present DOCTOR: Ashli Fuentes Interpretating Date/Time 04/18/2018 21:22:41
[2018-04-18] MEDS ORDERED: Sodium Chloride 0.9% 2 ML Flush PRN IV.FLUSH (23:24)
[2018-04-18] MEDS ORDERED: Acetaminophen 325 MG Tablet PO PRN (23:27)
--- NOTE | 2018-04-18 23:43 | P.HP ---
[facility]: DO Norberto Fish Chief Complaint: Generalized weakness dizziness fluctuating blood pressure History of Present Illness: 83-year-old white female with a past medical history of aortic valve replacement in July 2017 hypertension which is been labile HLD, hypothyroid GERD depression presents to the emergency room via private vehicle for evaluation of her blood pressure and feelings of nausea generalized weakness and some dizziness. Patient states his symptoms have been ongoing for a few weeks she has had numerous changes to her blood pressure medicine via cardiology list and brought her bottles with her the list in the bottles do not exactly match up from what I can tell she is on gabapentin for neuropathy 600 mg at night Levoxyl for hypothyroid 0.1 a day lisinopril 20 twice daily for her blood pressure atenolol 25 a day for blood pressure Zantac for GERD 150 twice daily there is a listing of spironolactone although she does not have a bottle of it this will be held and as per her sodium level is low hydralazine 25 3 times a day atorvastatin 40 mg a day docs.DOXE PIN 25 at bedtime and she has the addition of a Catapres patch. Patient denies any chest pain shortness of breath does have nausea no vomiting no diarrhea no headache no chills no fever but did have some dizziness today. Blood pressure is remained stable in the emergency room but in laboratory review her sodium count was 121 and discussing it with her the only new medicine she is on which was started within the last 2 weeks has been Lexapro at a 10 mg dose and the spironolactone both these can be contributing to her low sodium I will hold these at this time. Follow-up levels in a.m. we will start her on a little bit of IV fluid as well. In view of the dizziness with the hyponatremia I will get a CT of the head noncontrast. - Diagnosis (1) Hyponatremia (2) Labile essential hypertension (3) Weakness (4) Dizziness (5) Depressed Inpatient Certification: I certify that the inpatient services were ordered in accordance with Medicare regulations governing the order. This includes certification that hospital inpatient services are reasonable and necessary and in the case of services not specified as inpatient-only under 42 CFR 419.22(n), that they are appropriately provided as inpatient services in accordance to with the 2-midnight benchmark under 43 CFR 412.3(e) Review of Systems All other systems reviewed negative except as stated in HPI PMFSH - History History Provided By: Patient - Tobacco History Second Hand Smoke Exposure: No Smoking Status: Never smoker - Alcohol History How Often Do You Have a Drink Containing Alcohol: Never - Substance Use History Substance History: No History of Abuse - Travel History Recent Travel in the [place] Within the Last 8 Weeks: No Recent Travel Out of the Country Within the Last 8 Weeks: No - Immunization History Tetanus Immunization: >5 Years Medications and Allergies Active Medications: Active Medications Hydrocodone Bitart/Acetaminophen ([place] 5/325) 1 tab PO HS PRN PRN Reason: PAIN SCALE 6 TO 10 Atenolol (Tenormin) 25 mg PO DAILY LENORE Atorvastatin Calcium (Lipitor) 40 mg PO DAILY LENORE Clonidine HCl (Catapress-Tts 0.1 Mg Patch.7d) 1 patch T-DERMAL Q7D LENORE Doxepin HCl ([place]) 25 mg PO HS LENORE Famotidine (Pepcid) 20 mg PO BID LENORE Gabapentin (Neurontin) 600 mg PO HS LENORE Hydralazine HCl (Apresoline) 25 mg PO TID LENORE Levothyroxine Sodium (Synthroid) 100 mcg PO DAILY@0600 LENORE Lisinopril (Prinivil) 20 mg PO BID LENORE Lorazepam (Ativan) 0.5 mg PO TID LENORE Patch Removal (Remove Old Patch) 1 each T-DERMAL Q7D LENORE Sodium Chloride (Ns Flush) 2 ml IV.FLUSH BID LENORE Sodium Chloride (Ns Flush) 2 ml IV.FLUSH PRN PRN PRN Reason: FLUSH AFTER USING IV ACCESS Allergies Allergy/AdvReac Type Severity Reaction Status Date / Time brimonidine Allergy Severe redness Verified 04/18/18 16:35 duloxetine Allergy Severe swelling Verified 04/18/18 16:35 tetanus toxoid, adsorbed Allergy Intermediate SWELLING Verified 04/18/18 16:35 AT INJECTION SITE Home Medications Medication Instructions Recorded Confirmed Type atenolol 25 mg PO DAILY 04/18/18 04/18/18 History escitalopram oxalate 10 mg PO DAILY 04/18/18 04/18/18 History gabapentin 600 mg PO HS 04/18/18 04/18/18 History hydralazine 25 mg PO TID 04/18/18 04/18/18 History levothyroxine [Levoxyl] 100 mcg PO DAILY 04/18/18 04/18/18 History lisinopril 20 mg PO BID 04/18/18 04/18/18 History lorazepam 0.5 mg PO TID 04/18/18 04/18/18 History ranitidine HCl 150 mg PO BID 04/18/18 04/18/18 History Exam Vital signs: Vital Signs 04/18/18 16:32 04/18/18 19:05 04/18/18 20:12 Temperature 97.6 F Pulse Rate 74 68 63 Respiratory Rate 20 18 20 Blood Pressure 186/80 H 178/74 H 177/92 H Pulse Oximetry 97 97 04/18/18 20:18 04/18/18 21:30 04/18/18 21:53 Temperature Pulse Rate 62 69 76 Respiratory Rate 17 18 Blood Pressure 155/67 H 160/69 H 150/66 H Pulse Oximetry 96 96 95 Intake & Output 04/18/18 04/18/18 04/19/18 06:59 18:59 06:59 Intake Total 500 / 500 Balance 500 / 500 Weight 98.43 kg Intake: IV 500 / 500 NS Inj 500 ML @ Wide Open IV. 500 / 500 SIG BOLUS ONE Rx#:[id number] Narrative: GENERAL: SKIN: Warm and dry. HEAD: Atraumatic. Normocephalic. EYES: Pupils equal and round. No scleral icterus. No injection or drainage. ENT: No nasal bleeding or discharge. Mucous membranes pink and moist. NECK: Trachea midline. No JVD. CARDIOVASCULAR: Regular rate and rhythm. RESPIRATORY: No accessory muscle use. Clear to auscultation. Breath sounds equal bilaterally. GASTROINTESTINAL: Abdomen soft, non-tender, nondistended. Hepatic and splenic margins not palpable. MUSCULOSKELETAL: Extremities without clubbing, cyanosis, chronic lymphedema lower extremities. No obvious deformities. NEUROLOGICAL: Awake and alert. No obvious cranial nerve deficits. Motor grossly within normal limits. Five out of 5 muscle strength in the arms and legs. Normal speech. PSYCHIATRIC: Appropriate mood and affect; insight and judgment normal. Results - Labs CBC & Chem 7: 04/18/18 20:00 04/18/18 20:00 Labs: Laboratory Results - last 24 hr 04/18/18 04/18/18 04/18/18 20:00 20:00 20:00 WBC 6.7 RBC 3.99 L Hgb 12.2 Hct 35.9 MCV 90.1 MCH 30.7 MCHC 34.1 RDW 14.9 Plt Count 207 MPV 7.1 Neut % (Auto) 65.9 Lymph % (Auto) 22.8 [place] % (Auto) 9.8 H Eos % (Auto) 0.6 Baso % (Auto) 0.9 Neut # (Auto) 4.4 Lymph # (Auto) 1.5 [place] # (Auto) 0.7 Eos # (Auto) 0.0 Baso # (Auto) 0.1 WBC Differential . Differential Comment Auto diff final Sodium 121 L* Potassium 4.4 Chloride 90 L Carbon Dioxide 22.9 Anion Gap 8 BUN 11 Creatinine 0.86 Estimated GFR 63 L Random Glucose 110 H Calcium 9.7 Magnesium 2.1 Total Bilirubin 0.6 AST 22 ALT 38 Alkaline Phosphatase 61 Troponin I Less than 0.02 L B-Natriuretic Peptide 214 H Total Protein 7.1 Albumin 3.9 Caprini VTE Risk Assessment Caprini VTE Risk Assessment: Moderate/High Risk (score >= 2) Caprini Risk Assessment Model: Point Value = 1 Point Value = 2 Point Value = 3 Point Value = 5 Age 41-60 Minor surgery BMI > 25 kg/m2 Swollen legs Varicose veins or History of unexplained or recurrent spontaneous Oral contraceptives or hormone replacement Sepsis (< 1 month) Serious lung disease, including pneumonia (< 1 month) Abnormal pulmonary function Acute myocardial infarction Congestive heart failure (< 1 month) History of inflammatory bowel disease Medical patient at bed rest Age 61-74 Arthroscopic surgery Major open surgery (> 45 min) Laparoscopic surgery (> 45 min) Malignancy Confined to bed (> 72 hours) Immobilizing plaster cast Central venous access Age >= 75 History of VTE Family history of VTE Factor V Leiden Prothrombin [id number] Lupus anticoagulant Anticardiolipin antibodies Elevated serum homocysteine Heparin-induced thrombocytopenia Other congenital or acquired thrombophilia Stroke (< 1 month) Elective arthroplasty Hip, pelvis, or leg fracture Acute spinal cord injury (< 1 month) Prophylaxis Regimen: Total Risk Factor Score Risk Level Prophylaxis Regimen 0-1 Low Early ambulation 2 Moderate Order ONE of the following: *Sequential Compression Device (SCD) *Heparin 5000 units SQ BID 3-4 Higher Order ONE of the following medications: *Heparin 5000 units SQ TID *Enoxaparin/Lovenox 40 mg SQ daily (WT < 150 kg, CrCl > 30 mL/min) *Enoxaparin/Lovenox 30 mg SQ daily (WT < 150 kg, CrCl > 10-29 mL/min) *Enoxaparin/Lovenox 30 mg SQ BID (WT < 150 kg, CrCl > 30 mL/min) AND/OR *Sequential Compression Device (SCD) 5 or more Highest Order ONE of the following medications: *Heparin 5000 units SQ TID (Preferred with Epidurals) *Enoxaparin/Lovenox 40 mg SQ daily (WT < 150 kg, CrCl > 30 mL/min) *Enoxaparin/Lovenox 30 mg SQ daily (WT < 150 kg, CrCl > 10-29 mL/min) *Enoxaparin/Lovenox 30 mg SQ BID (WT < 150 kg, CrCl > 30 mL/min) AND *Sequential Compression Device (SCD) Assessment and Plan - Assessment (1) Hyponatremia Code(s): E87.1 - Hypo-osmolality and hyponatremia Status: Acute Plan: Sodium at 121 has received some IV fluid this will be continued at a lower dose rate, she did have some dizziness sodium may be related to the use of Lexapro with the spironolactone they are on hold at this time will recheck sodium levels will get a baseline CT of the head as she did have dizziness noncontrast and also will do a baseline chest x-ray. (2) Labile essential hypertension Code(s): I10 - Essential (primary) hypertension Status: Acute Plan: Blood pressure seems to be stable at this time we will continue the home medicines as I stated above in the H&P lisinopril 20 twice daily atenolol 25 a day Catapres patch 0.1 hydralazine at 25 3 times daily apparently patient was on amlodipine in the past but had significant leg swelling from the amlodipine (3) Weakness Code(s): R53.1 - Weakness Status: Acute Plan: Plan as above give some fluid recheck lab (4) Dizziness Code(s): R42 - Dizziness and giddiness Status: Acute Plan: Noncontrast CT of the head (5) Depressed Code(s): F32.9 - Major depressive disorder, single episode, unspecified Status : Acute Plan: Depression seems to be more related to passing of her approximately 4 years ago at this time will hold off on any antidepressants she does take doxepin 25 at bedtime we will continue that for now - Plan Further plan as case develops case management did say that the patient does meet inpatient criteria with the hyponatremia we will go ahead and change that Code Status: Full Discussed Condition With: Patient and daughter
[2018-04-18] MEDS ORDERED: Pantoprazole Inj 40 MG Vial IV.PUSH ONE (23:48)
[2018-04-18 23:59] LABS: Bilirubin,Urine Negative (Negative); Clarity,Urine Clear (Clear); Color,Urine Yellow (Yellw/Straw); Glucose,Urine (UA) Negative (Negative); Leukocyte Esterase,Urine Trace (Negative); Mucus,Urine Few /lpf (Occasional); Nitrite,Urine Negative (Negative); Specific Gravity,Urine 1.008 (1.002-1.035); Squamous Epithelial Cell,Urine 1 /hpf (0-5)
[2018-04-19] MEDS: Sod Chloride 0.9% Inj 1,000 ML IV.CONT SCH ×2 (00:02→16:57)
--- NOTE | 2018-04-19 00:17 | XR ---
EXAM DATE: 04/19/2018 12:02 AM EST AGE/SEX: 83 years / Female INDICATIONS: Hypertension. Hyponatremia. CLINICAL DATA: This is the patient's initial encounter. Patient reports that signs and symptoms have been present for 1 day and indicates a pain score of 0/10. MEDICAL/SURGICAL HISTORY: Hypertension. Gastroesophageal reflux disease. . Total left hip arth roplasty. Transcatheter aortic valve replacement. COMPARISON: [facility] – [place], [place]ST PA & LAT, 09/10/2017. . FINDINGS: A single AP view of the chest demonstrates the lungs to be symmetrically aerated without evidence of mass, infiltrate or effusion. The cardiomediastinal contours are unremarkable. Osseous structures a re intact. CONCLUSION: Negative examination. Electronically signed by: Torres Real MD 04/19/2018 12:15 AM EST
--- NOTE | 2018-04-19 01:19 | CT ---
EXAM DATE: 04/19/2018 1:16 AM EST AGE/SEX: 83 years / Female INDICATIONS: Dizziness. CLINICAL DATA: This is the patient's initial encounter. Patient reports that signs and symptoms have been present for 1 day and indicates a pain score of 0/10. MEDICAL/SURGICAL HISTORY: Hypertension. . Aortic valve replacement. RADIATION DOSE: 66.34 CTDI (mGy) COMPARISON: [facility] [place]IN [place], 10/01/2014. . TECHNIQUE: CT of the head without contrast. Using automated exposure control and adjustment of the mA and/or kV according to patient size, radiation dose was kept as low as reasonably achievable to ob tain optimal diagnostic quality images. DICOM format image data is available electronically for revi ew and comparison. FINDINGS: Cerebrum: Atrophy. Periventricular low attenuation change involving both cerebral hemispheres. The ve ntricles are normal for age. No evidence of midline shift, mass lesion, hemorrhage or acute infarcti on. No extraaxial fluid collections are seen. Posterior Fossa: The cerebellum and brainstem are intact. The 4th ventricle is midline. The cerebe llopontine angle is unremarkable. Extracranial: Complete opacification of the right mastoid air cells is long-term stable. Left mastoi d air cells are clear. The visualized portion of the orbits is intact. Skull: The calvaria is intact. No evidence of skull fracture. CONCLUSION: 1. No acute intracranial abnormality. 2. Atrophy and chronic small vessel ischemic change. . Electronically signed by: Torres Real MD 04/19/2018 1:18 AM EST
[2018-04-19 04:31] LABS: Baso # (Auto) 0.1 th/mm3 (0.0-0.2); Baso % (Auto) 0.7 % (0.0-2.0); Eos # (Auto) 0.1 th/mm3 (0.0-0.4); Eos % (Auto) 1.4 % (0.0-4.0); Hematocrit 33.3 % (35.0-46.0); Hemoglobin 11.4 gm/dL (11.6-15.3); Lymph # (Auto) 1.9 th/mm3 (1.0-4.8); Lymph % (Auto) 27.3 % (9.0-44.0); Mean Corpuscular HGB Conc 34.1 % (32.0-36.0); Mean Corpuscular Hemoglobin 31.3 pg (27.0-34.0); Mean Corpuscular Volume 91.7 fL (80.0-100.0); Mean Platelet Volume 7.3 fL (7.0-11.0); Mono # (Auto) 0.8 th/mm3 (0.0-0.9); Mono % (Auto) 12.1 % (0.0-8.0); Neut # (Auto) 4.1 th/mm3 (1.8-7.7); Neut % (Auto) 58.5 % (16.0-70.0); Platelet Count 183 th/mm3 (150-450); Red Blood Count 3.64 mil/mm3 (4.00-5.30); Red Cell Distribution Width 15.1 % (11.6-17.2)
[2018-04-19 04:54] LABS: Calcium 9.2 mg/dL (8.5-10.1); Carbon Dioxide 25.7 meq/L (21.0-32.0); Potassium 4.6 meq/L (3.5-5.1)
[2018-04-19] MEDS: Levothyroxine 100 MCG Tablet PO SCH (06:34)
[2018-04-19] MEDS: LORazepam 0.5 MG Tablet PO SCH ×3 (08:29→17:05)
[2018-04-19] MEDS: Senna/Docusate Sodium 8.6/50 MG Tablet PO SCH ×2 (08:29→20:15)
[2018-04-19] MEDS: hydrALAZINE 25 MG Tablet PO SCH ×3 (08:29→17:05)
[2018-04-19] MEDS: Lisinopril 20 MG Tablet PO SCH ×2 (08:30→20:15)
[2018-04-19] MEDS: Famotidine 20 MG Tablet PO SCH ×2 (08:30→20:15)
[2018-04-19] MEDS: Atenolol 25 MG Tablet PO SCH (08:30)
[2018-04-19] MEDS ORDERED: Sodium Chloride 0.9% 2 ML Flush BID IV.FLUSH SCH (09:00)
--- NOTE | 2018-04-19 12:20 | P.PNIM ---
Subjective Interval history: Follow up nausea and hyponatremia patient endorses low appetite Physical Exam Vital signs: Last Vital Signs Temp 97.7 F 04/19/18 11:31 Pulse 74 04/19/18 11:31 Resp 17 04/19/18 11:31 BP 127/59 L 04/19/18 11:31 Pulse Ox 96 04/19/18 11:31 Narrative: GENERAL: This is a elderly, well-developed patient, in no apparent distress. CARDIOVASCULAR: Regular rate and rhythm RESPIRATORY: Clear to auscultation. Breath sounds equal bilaterally. GASTROINTESTINAL: Abdomen soft, non-tender, nondistended. Normal active bowel sounds MUSCULOSKELETAL: Extremities without clubbing, cyanosis, or edema. NEURO: Alert & Oriented x4 to person, place, time, situation. Moves all ext x4 Results Labs CBC & Chem 7: 04/19/18 03:06 04/19/18 03:06 Assessment and Plan Assessment (1) Hyponatremia: Code(s): E87.1 - Hypo-osmolality and hyponatremia Status: Acute (2) Labile essential hypertension: Code(s): I10 - Essential (primary) hypertension Status: Acute (3) Weakness: Code(s): R53.1 - Weakness Status: Acute (4) Dizziness: Code(s): R42 - Dizziness and giddiness Status: Acute (5) Depressed: Code(s): F32.9 - Major depressive disorder, single episode, unspecified Status: Acute Plan 83-year-old white female with a past medical history of aortic valve replacement in July 2017 hypertension which is been labile HLD, hypothyroid GERD depression presents to the emergency room via private vehicle for evaluation of her blood pressure and feelings of nausea generalized weakness and some dizziness. Patient states his symptoms have been ongoing for a few weeks she has had numerous changes to her blood pressure medicine via cardiology. spironolactone although she does not have a bottle of it this will be held and as per her sodium level is low. Laboratory review her sodium count was 121 and discussing it with her the only new medicine she is on which was started within the last 2 weeks has been Lexapro at a 10 mg dose and the spironolactone both these can be contributing to her low sodium will hold these. Hyponatremia likely related to Lexapro with the spironolactone and poor PO intake Sodium at 121 has received some IV fluid this will be continued at a lower dose rate, she did have some dizziness sodium may be related to the use of Lexapro with the spironolactone they are on hold at this time will recheck sodium levels repeat Na 125 recheck in AM check urine sodium, urine osmolality, serum osmolality ordered Labile essential hypertension Blood pressure seems to be stable at this time we will continue the home medicines as I stated above in the H&P lisinopril 20 twice daily atenolol 25 a day Catapres patch 0.1 hydralazine at 25 3 times daily apparently patient was on amlodipine in the past but had significant leg swelling from the amlodipine and is no longer taking Weakness Plan as above give some fluid PT Dizziness Noncontrast CT of the head Head CT 04/19/18 1. No acute intracranial abnormality. 2. Atrophy and chronic small vessel ischemic change. Depression Depression seems to be more related to passing of her approximately 4 years ago at this time will hold off on any antidepressants she does take doxepin 25 at bedtime we will continue that for now the only new medicine she is on which was started within the last 2 weeks has been Lexapro at a 10 mg can be contributing to her low sodium will hold these at this time DVT prophylaxis with SCDs Progress Note: Quality VTE Deep Vein Thrombosis/Pulmonary Embolism Present on Admission: No _ (1) Depressed Qualifiers: Active/Remission status: Depression Type: Major depression episode severity: Major depression recurrence: Psychotic features: Trimester:
[2018-04-19 16:10] LABS: Lipase 471 U/L (73-393)
--- NOTE | 2018-04-19 19:11 | P.CONGI ---
History of Present Illness Consult date: 04/19/18 Consult reason: Nausea Chief complaint: Hyponatremia History of Present Illness: This patient is an 83-year-old female with past medical history significant for aortic valve replacement, hypertension, hypothyroidism, GERD and depression. Patient presented to the emergency room at [facility] for evaluation of nausea with generalized weakness. She also endorsed dizziness to which she thought was related to her blood pressure medicine. Patient was noted to be hyponatremic with a sodium level of 121 upon arrival. Patient reported on arrival that she has had generalized weakness with nausea and poor appetite. Upon consultation, patient endorses that she has actually had very poor p.o. intake with occasional nausea for 4 years since the passing of her . She states that she has not felt motivated to do much cooking or meal preparation at home since his passing. Patient endorses history of GERD for which he takes ranitidine 150 mg p.o. twice daily and reports control symptoms. Patient denies any difficulty swallowing or painful swallowing. She denies any unintended weight loss. Patient denies any noted bleeding or change in bowel habits. Our service has been consulted to evaluate patient for decreased p.o. intake with ongoing nausea. Review of Systems All other systems reviewed negative except as stated in HPI PMFSH - History History Provided By: Patient - Tobacco History Second Hand Smoke Exposure: No Tobacco Use In Past 30 Days: No Smoking Status: Never smoker - Alcohol History How Often Do You Have a Drink Containing Alcohol: Never - Substance Use History Substance History: No History of Abuse - Travel History Recent Travel in the [place] Within the Last 8 Weeks: No Recent Travel Out of the Country Within the Last 8 Weeks: No - Immunization History Tetanus Immunization: >5 Years Hx Influenza Vaccine This Season: Yes Medications and Allergies Active Medications: Active Medications Acetaminophen (Tylenol) 650 mg PO Q4H PRN PRN Reason: Temp > 100.4 Hydrocodone Bitart/Acetaminophen ([place] 5/325) 1 tab PO HS PRN PRN Reason: PAIN SCALE 6 TO 10 Last Admin: 04/19/18 03:54 Dose: 1 tab Atenolol (Tenormin) 25 mg PO DAILY [facility] Last Admin: 04/19/18 08:30 Dose: 25 mg Atorvastatin Calcium (Lipitor) 40 mg PO DAILY [facility] Last Admin: 04/19/18 08:29 Dose: 40 mg Clonidine HCl (Catapress-Tts 0.1 Mg Patch.7d) 1 patch T-DERMAL Q7D [facility] Last Admin: 04/19/18 00:53 Dose: 1 patch Doxepin HCl (Sinequan) 25 mg PO [facility] Last Admin: 04/19/18 00:54 Dose: 25 mg Famotidine (Pepcid) 20 mg PO BID [facility] Last Admin: 04/19/18 08:30 Dose: 20 mg Gabapentin (Neurontin) 600 mg PO [facility] Hydralazine HCl (Apresoline) 25 mg PO TID [facility] Last Admin: 04/19/18 17:05 Dose: 25 mg Sodium Chloride (Ns Inj) 1,000 mls @ 70 mls/hr IV.CONT .[id number] [facility] Last Admin: 04/19/18 16:57 Dose: 70 mls/hr Levothyroxine Sodium (Synthroid) 100 mcg PO DAILY@0600 [facility] Last Admin: 04/19/18 06:34 Dose: 100 mcg Lisinopril (Prinivil) 20 mg PO BID [facility] Last Admin: 04/19/18 08:30 Dose: 20 mg Lorazepam (Ativan) 0.5 mg PO TID [facility] Last Admin: 04/19/18 17:05 Dose: Not Given Ondansetron HCl (Zofran Inj) 4 mg IV.PUSH Q6H PRN PRN Reason: NAUSEA OR VOMITING Last Admin: 04/19/18 08:37 Dose: 4 mg Pantoprazole Sodium (Protonix Inj) 40 mg IV.PUSH Q12H [facility] Patch Removal (Remove Old Patch) 1 each T-DERMAL Q7D [facility] Senna/Docusate Sodium (Bijal-Colace) 1 tab PO BID [facility] Last Admin: 04/19/18 08:29 Dose: Not Given Sodium Chloride (Ns Flush) 2 ml IV.FLUSH BID [facility] Last Admin: 04/19/18 08:30 Dose: 2 ml Sodium Chloride (Ns Flush) 2 ml IV.FLUSH PRN PRN PRN Reason: FLUSH AFTER USING IV ACCESS Allergies Allergy/AdvReac Type Severity Reaction Status Date / Time brimonidine Allergy Severe redness Verified 04/18/18 16:35 duloxetine Allergy Severe swelling Verified 04/18/18 16:35 tetanus toxoid, adsorbed Allergy Intermediate SWELLING Verified 04/18/18 16:35 AT INJECTION SITE Home Medications Medication Instructions Recorded Confirmed Type atenolol 25 mg PO DAILY 04/18/18 04/18/18 History escitalopram oxalate 10 mg PO DAILY 04/18/18 04/18/18 History gabapentin 600 mg PO HS 04/18/18 04/18/18 History hydralazine 25 mg PO TID 04/18/18 04/18/18 History levothyroxine [Levoxyl] 100 mcg PO DAILY 04/18/18 04/18/18 History lisinopril 20 mg PO BID 04/18/18 04/18/18 History lorazepam 0.5 mg PO TID 04/18/18 04/18/18 History ranitidine HCl 150 mg PO BID 04/18/18 04/18/18 History Exam Vital signs: Vital Signs 04/18/18 19:05 04/18/18 20:12 04/18/18 20:18 Temperature Pulse Rate 68 63 62 Respiratory Rate 18 20 17 Blood Pressure 178/74 H 177/92 H 155/67 H Pulse Oximetry 97 96 04/18/18 21:30 04/18/18 21:53 04/19/18 00:54 Temperature Pulse Rate 69 76 67 Respiratory Rate 18 18 17 Blood Pressure 160/69 H 150/66 H 137/61 Pulse Oximetry 96 95 97 04/19/18 03:00 04/19/18 03:11 04/19/18 04:00 Temperature 97.2 F L Pulse Rate 63 69 68 Respiratory Rate 18 20 Blood Pressure 147/97 H 142/63 H Pulse Oximetry 95 95 95 04/19/18 08:00 04/19/18 11:31 04/19/18 16:02 Temperature 97.6 F 97.7 F 98.2 F Pulse Rate 70 74 69 Respiratory Rate 17 17 17 Blood Pressure 152/67 H 127/59 L 120/58 L Pulse Oximetry 94 L 96 94 L Intake & Output 04/18/18 04/19/18 04/19/18 18:59 06:59 18:59 Intake Total 620 / 620 1000 / 1000 Balance 620 / 620 1000 / 1000 Weight 98.43 kg 100.9 kg Intake: IV 500 / 500 1000 / 1000 NS Inj 1,000 ML @ 70 mls/hr IV. 1000 / 1000 CONT .[id number] [place] Rx#:[id number] NS Inj 500 ML @ Wide Open IV. 500 / 500 SIG BOLUS ONE Rx#:[id number] Oral 120 / 120 Other: # Voids 0 1 Date of Last Bowel Movement 04/18/18 04/19/18 # Bowel Movements 0 1 Weight On Admission 98.43 kg - Constitutional no acute distress - Routine HEENT Exam Head: Present: normocephalic - Routine Respiratory Exam Present: CTA bilaterally - Routine Cardiovascular Exam Present: RRR - Routine Abdominal Exam Present: soft, normoactive bowel sounds. Absent: tenderness, distended, guarding, firm - Routine Extremities Exam Absent: edema - Routine Skin Exam Present: dry, warm - Routine Neurological Exam Present: alert, oriented X3 Results - Labs CBC & Chem 7: 04/19/18 03:06 04/19/18 03:06 Labs: Laboratory Results - last 24 hr 04/18/18 04/18/18 04/18/18 20:00 20:00 20:00 WBC 6.7 RBC 3.99 L Hgb 12.2 Hct 35.9 MCV 90.1 MCH 30.7 MCHC 34.1 RDW 14.9 Plt Count 207 MPV 7.1 Neut % (Auto) 65.9 Lymph % (Auto) 22.8 [place] % (Auto) 9.8 H Eos % (Auto) 0.6 Baso % (Auto) 0.9 Neut # (Auto) 4.4 Lymph # (Auto) 1.5 [place] # (Auto) 0.7 Eos # (Auto) 0.0 Baso # (Auto) 0.1 WBC Differential . Differential Comment Auto diff final Sodium 121 L* Potassium 4.4 Chloride 90 L Carbon Dioxide 22.9 Anion Gap 8 BUN 11 Creatinine 0.86 Estimated GFR 63 L Random Glucose 110 H Osmolality Calcium 9.7 Magnesium 2.1 Total Bilirubin 0.6 AST 22 ALT 38 Alkaline Phosphatase 61 Troponin I Less than 0.02 L B-Natriuretic Peptide 214 H Total Protein 7.1 Albumin 3.9 Lipase Urine Color Urine Clarity Urine pH Ur Specific [place] Urine Protein Urine Glucose (UA) Urine Ketones Urine Occult Blood Urine Nitrate Urine Bilirubin Urine Urobilinogen Ur Leukocyte Esterase Urine RBC Urine WBC Ur Squamous Epith Cells Urine Mucus Micro UA Comment Ur Microscopic Review Urine Culture Comments 04/18/18 04/19/18 04/19/18 23:45 03:06 03:06 WBC 7.0 RBC 3.64 L Hgb 11.4 L Hct 33.3 L MCV 91.7 MCH 31.3 MCHC 34.1 RDW 15.1 Plt Count 183 MPV 7.3 Neut % (Auto) 58.5 Lymph % (Auto) 27.3 [place] % (Auto) 12.1 H Eos % (Auto) 1.4 Baso % (Auto) 0.7 Neut # (Auto) 4.1 Lymph # (Auto) 1.9 [place] # (Auto) 0.8 Eos # (Auto) 0.1 Baso # (Auto) 0.1 WBC Differential . Differential Comment Auto diff final Sodium 125 L Potassium 4.6 Chloride 93 L Carbon Dioxide 25.7 Anion Gap 6 BUN 10 Creatinine 0.86 Estimated GFR 63 L Random Glucose 100 Osmolality Calcium 9.2 Magnesium Total Bilirubin AST ALT Alkaline Phosphatase Troponin I B-Natriuretic Peptide Total Protein Albumin Lipase Urine Color Yellow Urine Clarity Clear Urine pH 6.0 Ur Specific [place] 1.008 Urine Protein Negative Urine Glucose (UA) Negative Urine Ketones Trace H Urine Occult Blood Negative Urine Nitrate Negative Urine Bilirubin Negative Urine Urobilinogen Less than 2 Ur Leukocyte Esterase Trace H Urine RBC Less than 1 Urine WBC 5 Ur Squamous Epith Cells 1 Urine Mucus Few H Micro UA Comment Culture not ind Ur Microscopic Review Not Reportable Urine Culture Comments Culture not ind 04/19/18 03:06 WBC RBC Hgb Hct MCV MCH MCHC RDW Plt Count MPV Neut % (Auto) Lymph % (Auto) [place] % (Auto) Eos % (Auto) Baso % (Auto) Neut # (Auto) Lymph # (Auto) [place] # (Auto) Eos # (Auto) Baso # (Auto) WBC Differential Differential Comment Sodium Potassium Chloride Carbon Dioxide Anion Gap BUN Creatinine Estimated GFR Random Glucose Osmolality 258 L Calcium Magnesium Total Bilirubin AST ALT Alkaline Phosphatase Troponin I B-Natriuretic Peptide Total Protein Albumin Lipase 471 H Urine Color Urine Clarity Urine pH Ur Specific [place] Urine Protein Urine Glucose (UA) Urine Ketones Urine Occult Blood Urine Nitrate Urine Bilirubin Urine Urobilinogen Ur Leukocyte Esterase Urine RBC Urine WBC Ur Squamous Epith Cells Urine Mucus Micro UA Comment Ur Microscopic Review Urine Culture Comments - Imaging Impressions Chest X-Ray 04/18/18 00:00 CONCLUSION: Negative examination. Head CT 04/19/18 00:00 CONCLUSION: 1. No acute intracranial abnormality. 2. Atrophy and chronic small vessel ischemic change. . Assessment and Plan (1) Nausea Status: Acute Code(s): R11.0 - Nausea (2) Poor appetite Status: Acute Code(s): R63.0 - Anorexia - Plan This patient is an 83-year-old female with past medical history significant for aortic valve replacement, hypertension, hypothyroidism, GERD and depression. Patient presented to the emergency room at [facility] for evaluation of nausea with generalized weakness. She also endorsed dizziness to which she thought was related to her blood pressure medicine. Patient was noted to be hyponatremic with a sodium level of 121 upon arrival. Patient reported on arrival that she has had generalized weakness with nausea and poor appetite. Upon consultation, patient endorses that she has actually had very poor p.o. intake with occasional nausea for 4 years since the passing of her . She states that she has not felt motivated to do much cooking or meal preparation at home since his passing. Patient endorses history of GERD for which he takes ranitidine 150 mg p.o. twice daily and reports control symptoms. Patient denies any difficulty swallowing or painful swallowing. She denies any unintended weight loss. Patient denies any noted bleeding or change in bowel habits. Our service has been consulted to evaluate patient for decreased p.o. intake with ongoing nausea. Nausea Decreased p.o. intake -Patient endorses ongoing nausea with poor appetite times 4 years since the passing of her . She states she has a history of GERD for which he takes Zantac 150 mg twice daily. Patient was noted to be hyponatremic with a sodium level of [address] of abdomen and pelvis to rule out bowel obstruction/pancreatitis. -04/19/2018 WBC 7.0 hemoglobin 11.4 hematocrit 33.3 Sodium 125 potassium 4.6 lipase 471. Plan -N.p.o. after midnight -EGD in a.m. -Obtain consent for EGD -Protonix 40 mg IV every 12 -CT abdomen and pelvis-bowel obstruction versus pancreatitis -Monitor labs -Antiemetics as per attending -Supportive care -Further recommendations to follow This patient has been seen by myself and this note is written on his behalf - Attending Attestation Dr. Gallardo
[2018-04-19] MEDS: Gabapentin 300 MG Capsule PO SCH (20:15)
[2018-04-19] MEDS: Pantoprazole Inj 40 MG Vial IV.PUSH SCH (20:18)
[2018-04-20] MEDS: Sod Chloride 0.9% Inj 1,000 ML IV.CONT SCH ×3 (04:06→20:21)
[2018-04-20] MEDS: Levothyroxine 100 MCG Tablet PO SCH (05:56)
[2018-04-20 06:58] LABS: Calcium 8.4 mg/dL (8.5-10.1); Carbon Dioxide 25.4 meq/L (21.0-32.0); Potassium 4.3 meq/L (3.5-5.1)
--- NOTE | 2018-04-20 08:54 | CT ---
EXAM DATE: 04/20/2018 8:39 AM EST AGE/SEX: 83 years / Female INDICATIONS: Nausea and abdominal pain. CLINICAL DATA: This is the patient's initial encounter. Patient reports that signs and symptoms have been present for 1 day and indicates a pain score of 2/10. MEDICAL/SURGICAL HISTORY: None. None. ORAL CONTRAST: No oral contrast ingested. RADIATION DOSE: 16.74 CTDI (mGy) COMPARISON: [facility] – [place], CTA THORACIC ABDOMINAL AORTA W 3D RECON, 02/24/2016. . TECHNIQUE: Multiple contiguous axial images were obtained through the abdomen and pelvis following b olus infusion of 96 ml Omnipaque 350 (iohexol) nonionic water-soluble contrast as a single exam dos e. No oral contrast ingested. Using automated exposure control and adjustment of the mA and/or kV ac cording to patient size, radiation dose was kept as low as reasonably achievable to obtain optimal di agnostic quality images. DICOM format image data is available electronically for review and comparis on. FINDINGS: Lower chest: There is atelectasis at the right lung base with trace right pleural fluid. There may be a mild degree of smooth septal thickening at the lung bases, right greater than left. Aortic valve r eplacement is present. Hepatobiliary: No focal liver lesion is identified. Hepatic vasculature demonstrates no abnormality. No calcified gallstones are present. Kidneys: No hydronephrosis, stone, or mass. Adrenal Glands: Within normal limits. Spleen: Within normal limits. Pancreas: Within normal limits. Vascular: The aorta is nonaneurysmal. There is severe atherosclerotic disease with tortuous abdominal aorta. Bowel/Mesentery: The stomach and small bowel demonstrate no abnormality. No acute colon abnormality i s seen. There is no free intraperitoneal air or fluid. The appendix is normal. Mild sigmoid diverticu losis is present. Abdominal Wall: No hernia is visualized. Retroperitoneum: No lymphadenopathy. Bladder: No wall thickening or mass. However, it is partially obscured secondary to the left hip hard lucas. Reproductive: Within normal limits. However, it is partially obscured secondary to the left hip hardw are. Inguinal: No lymphadenopathy or hernia. Musculoskeletal: No acute osseous abnormality is identified. There is multilevel degenerative disc di sease. Left hip arthroplasty is present and causes beam hardening artifact. CONCLUSION: 1. No acute finding is identified to explain the nausea and abdominal pain. 2. Trace right pleural fluid. 3. Severe atherosclerotic disease. Electronically signed by: Brodie Cardenas MD 04/20/2018 8:52 AM EST
[2018-04-20] MEDS: Lisinopril 20 MG Tablet PO SCH ×2 (10:53→20:20)
[2018-04-20] MEDS: Famotidine 20 MG Tablet PO SCH ×2 (10:53→20:20)
[2018-04-20] MEDS: LORazepam 0.5 MG Tablet PO SCH ×3 (10:53→18:30)
[2018-04-20] MEDS: Senna/Docusate Sodium 8.6/50 MG Tablet PO SCH ×2 (10:55→20:20)
[2018-04-20] MEDS: hydrALAZINE 25 MG Tablet PO SCH ×3 (10:55→20:21)
[2018-04-20] MEDS: Pantoprazole Inj 40 MG Vial IV.PUSH SCH ×2 (10:55→20:20)
[2018-04-20] MEDS: Atenolol 25 MG Tablet PO SCH (10:56)
--- NOTE | 2018-04-20 14:08 | P.PNIM ---
Subjective Interval history: Patient NPO for EGD patient denies nausea or abdominal pain asking to eat Physical Exam Vital signs: Last Vital Signs Temp 97.4 F L 04/20/18 12:00 Pulse 66 04/20/18 12:00 Resp 17 04/20/18 12:00 BP 161/70 H 04/20/18 12:00 Pulse Ox 94 L 04/20/18 12:00 Narrative: GENERAL: This is a elderly, well-developed patient, in no apparent distress. CARDIOVASCULAR: Regular rate and rhythm RESPIRATORY: Clear to auscultation. Breath sounds equal bilaterally. GASTROINTESTINAL: Abdomen soft, non-tender, nondistended. Normal active bowel sounds MUSCULOSKELETAL: Extremities without clubbing, cyanosis, or edema. NEURO: Alert & Oriented x4 to person, place, time, situation. Moves all ext x4 Results Labs CBC & Chem 7: 04/19/18 03:06 04/20/18 04:20 Assessment and Plan Assessment (1) Nausea: Code(s): R11.0 - Nausea Status: Acute (2) Poor appetite: Code(s): R63.0 - Anorexia Status: Acute Plan 83-year-old white female with a past medical history of aortic valve replacement in July 2017 hypertension which is been labile HLD, hypothyroid GERD depression presents to the emergency room via private vehicle for evaluation of her blood pressure and feelings of nausea generalized weakness and some dizziness. Patient states his symptoms have been ongoing for a few weeks she has had numerous changes to her blood pressure medicine via cardiology. spironolactone although she does not have a bottle of it this will be held and as per her sodium level is low. Laboratory review her sodium count was 121 and discussing it with her the only new medicine she is on which was started within the last 2 weeks has been Lexapro at a 10 mg dose and the spironolactone both these can be contributing to her low sodium will hold these. Hyponatremia likely related to Lexapro with the spironolactone and poor PO intake Sodium at 121 has received some IV fluid this will be continued at a lower dose rate, she did have some dizziness sodium may be related to the use of Lexapro with the spironolactone they are on hold at this time will recheck sodium levels repeat Na 125 (04/19) -> 131 (04/20) recheck in AM urine sodium 64, urine osmolality 289 check serum osmolality pending Recurrent nausea Poor PO intake Abdomen/Pelvis CT 04/20/18 1. No acute finding is identified to explain the nausea and abdominal pain. 2. Trace right pleural fluid. 3. Severe atherosclerotic disease. EGD postponed until tomorrow AM NPO after midnight Labile essential hypertension Blood pressure seems to be stable at this time we will continue the home medicines as I stated above in the H&P lisinopril 20 twice daily atenolol 25 a day Catapres patch 0.1 hydralazine at 25 3 times daily apparently patient was on amlodipine in the past but had significant leg swelling from the amlodipine and is no longer taking Weakness Plan as above give some fluid PT Dizziness Noncontrast CT of the head Head CT 04/19/18 1. No acute intracranial abnormality. 2. Atrophy and chronic small vessel ischemic change. Depression Depression seems to be more related to passing of her approximately 4 years ago at this time will hold off on any antidepressants she does take doxepin 25 at bedtime we will continue that for now the only new medicine she is on which was started within the last 2 weeks has been Lexapro at a 10 mg can be contributing to her low sodium will hold these at this time DVT prophylaxis with SCDs Attending Attestation The exam, history, and the medical decision-making described in the above note were completed with the assistance of the mid-level provider. I reviewed and agree with the findings presented. I attest that I had a [id number] encounter with the patient on the same day, and personally performed and documented my assessment and findings in the medical record. Patient examined. Assessment and plan formulated with Lora Whitman PA-C. I agree with the above. Progress Note: Quality VTE Deep Vein Thrombosis/Pulmonary Embolism Present on Admission: No
[2018-04-20] MEDS: Gabapentin 300 MG Capsule PO SCH (20:20)
[2018-04-21] MEDS ORDERED: Chlorhexidine Gluconate 2% 1 Pack (2 Cloths) TOPICAL ONE (02:39)
[2018-04-21] MEDS ORDERED: Sodium Chlor 0.9% Inj 500 ML IV.SIG SCH (03:00)
[2018-04-21] MEDS: Levothyroxine 100 MCG Tablet PO SCH (06:09)
[2018-04-21 08:41] VITALS: BP 155/68; RESP 18; TEMP 97.9
[2018-04-21] MEDS: Atenolol 25 MG Tablet PO SCH (09:24)
[2018-04-21] MEDS: hydrALAZINE 25 MG Tablet PO SCH ×3 (09:24→18:19)
[2018-04-21] MEDS: Lisinopril 20 MG Tablet PO SCH (09:24)
[2018-04-21] MEDS: Senna/Docusate Sodium 8.6/50 MG Tablet PO SCH (09:28)
[2018-04-21] MEDS: Famotidine 20 MG Tablet PO SCH (09:28)
[2018-04-21] MEDS: Pantoprazole Inj 40 MG Vial IV.PUSH SCH (09:29)
--- NOTE | 2018-04-21 11:28 | GIPROC ---
[facility] [address] [facility]. [facility], [address] EGD PROCEDURE REPORT EXAM DATE: 04/21/2018 PATIENT NAME: Laquita Conrad MR #: [id number] BIRTHDATE: 1935 ATTENDING: Too Gallardo MD ORDER #: [id number] [employer] TEAM MEMBER: Chelsey Lin and Adela Jain STATUS: inpatient INDICATIONS: The patient is a 83 yr old female here for an EGD due to dyspepsia and weight loss PROCEDURE PERFORMED: EGD w/ biopsy MEDICATIONS: Per Anesthesia and None. TOPICAL ANESTHETIC: none CONSENT: The patient understands the risks and benefits of the procedure and understands that these risks include, but are not limited to: sedation, allergic reaction, infection, perforation and/or bleeding. Alternative means of evaluation and treatment include, among others: physical exam, x-rays, and/or surgical intervention. The patient elects to proceed with this endoscopic procedure. medical equipment was checked for proper function. Hand hygiene and appropriate measures for infection prevention was taken. After the risks, benefits and alternatives of the procedure were thoroughly explained, Informed consent was verified, confirmed and timeout was successfully executed by the treatment team. The patient was anesthetized with topical anesthesia and the Pentax EG-[id number] endoscope was introduced through the mouth and advanced to the second portion of the duodenum. Retroflexed views revealed a hiatal hernia The gastroscope was then slowly withdrawn and removed. ESOPHAGUS: There was LA Class A esophagitis noted. Multiple biopsies were performed. STOMACH: There was mild antral gastropathy noted. Cold forcep biopsies were taken at the antrum and angularis. DUODENUM: The duodenal mucosa appeared normal in the entire duodenum. ADVERSE EVENTS: There were no complications. IMPRESSIONS: 1. There was LA Class A esophagitis noted; multiple biopsies were performed 2. There was mild antral gastropathy noted [T2] 3. Normal duodenal mucosa in the entire duodenum 4. Retroflexed views revealed a hiatal hernia RECOMMENDATIONS: 1. Await biopsy results. Biopsy results will not be ready for 7-10 days. If you don't hear from us in two weeks, call our office for biopsy results. 2. PROTONIX 40 QD Schedule GES PATIENT CONDITION: stable DISPOSITION: Inpatient REPEAT EXAM: Return as needed for EGD Too Gallardo MD eSigned: Too Gallardo MD 04/21/2018 11:27 AM cc: PATIENT NAME: Laquita Conrad MR#: [id number]
--- NOTE | 2018-04-21 11:32 | P.PNIM ---
Physical Exam Vital signs: Last Vital Signs Temp 97.9 F 04/21/18 08:00 Pulse 76 04/21/18 08:00 Resp 18 04/21/18 08:00 BP 155/68 H 04/21/18 08:00 Pulse Ox 94 L 04/21/18 08:00 Narrative: GENERAL: This is a elderly, well-developed patient, in no apparent distress. CARDIOVASCULAR: Regular rate and rhythm RESPIRATORY: Clear to auscultation. Breath sounds equal bilaterally. GASTROINTESTINAL: Abdomen soft, non-tender, nondistended. Normal active bowel sounds MUSCULOSKELETAL: Extremities without clubbing, cyanosis, or edema. NEURO: Alert & Oriented x4 to person, place, time, situation. Moves all ext x4 Results Labs CBC & Chem 7: 04/19/18 03:06 04/20/18 04:20 Imaging Chest X-Ray 04/18/18 00:00 CONCLUSION: Negative examination. Head CT 04/19/18 00:00 CONCLUSION: 1. No acute intracranial abnormality. 2. Atrophy and chronic small vessel ischemic change. Abdomen/Pelvis CT 04/20/18 00:00 CONCLUSION: 1. No acute finding is identified to explain the nausea and abdominal pain. 2. Trace right pleural fluid. 3. Severe atherosclerotic disease. Assessment and Plan Assessment (1) Nausea: Code(s): R11.0 - Nausea Status: Acute (2) Poor appetite: Code(s): R63.0 - Anorexia Status: Acute Plan 83-year-old white female with a past medical history of aortic valve replacement in July 2017 hypertension which is been labile HLD, hypothyroid GERD depression presents to the emergency room via private vehicle for evaluation of her blood pressure and feelings of nausea generalized weakness and some dizziness. Patient states his symptoms have been ongoing for a few weeks she has had numerous changes to her blood pressure medicine via cardiology. spironolactone although she does not have a bottle of it this will be held and as per her sodium level is low. Laboratory review her sodium count was 121 and discussing it with her the only new medicine she is on which was started within the last 2 weeks has been Lexapro at a 10 mg dose and the spironolactone both these can be contributing to her low sodium will hold these. Hyponatremia likely related to Lexapro with the spironolactone and poor PO intake - Sodium at 121 at admission has received some IV fluid this will be continued at a lower dose rate, she did have some dizziness sodium may be related to the use of Lexapro with the spironolactone they are on hold at this time will recheck sodium levels - Repeat Na 125 (04/19) -> 131 (04/20) - Recheck in AM - Urine sodium 64, urine osmolality 289, serum osmolality 258, not consistent with SIADH Recurrent nausea Poor PO intake - Abdomen/Pelvis CT 04/20/18 1. No acute finding is identified to explain the nausea and abdominal pain. 2. Trace right pleural fluid. 3. Severe atherosclerotic disease. - Pt underwent EGD (04/21/18) --> LA Class A esophagitis noted, mild antral gastropathy, and hiatal hernia - Cont. PPI Labile essential hypertension - Blood pressure seems to be stable at this time we will continue the home medicines, lisinopril 20 twice daily, atenolol 25 a day, Catapres patch 0.1mg, hydralazine at 25mgTID apparently patient was on amlodipine in the past but had significant leg swelling from the amlodipine and is no longer taking Weakness - PT recommending HHC/PT Dizziness - Noncontrast CT of the head 1. No acute intracranial abnormality. 2. Atrophy and chronic small vessel ischemic change. Depression - Depression seems to be more related to passing of her approximately 4 years ago at this time will hold off on any antidepressants she does take doxepin 25 at bedtime we will continue that for now - The only new medicine she is on which was started within the last 2 weeks has been Lexapro at a 10 mg can be contributing to her low sodium will hold these at this time DVT prophylaxis with SCDs Progress Note: Quality VTE Deep Vein Thrombosis/Pulmonary Embolism Present on Admission: No
[2018-04-21 12:03] VITALS: O2SAT 98
[2018-04-21 12:08] VITALS: PULSE 94
--- NOTE | 2018-04-21 12:48 | P.DS ---
DS: Providers Date of admission: 04/18/18 23:44 Primary care physician: Jameel Mcneil DO Consults: 04/19/18 15:10 Consult to Gastroenterology Routine Consulting Provider: Too Gallardo V Reason for Consultation: Poor PO intake and nausea Notified:: Office Spoke with:: GRACE Date Notified:: 04/19/18 Time Notified:: 15:18 Ordering Provider: LM Brief History from admission: 83-year-old white female with a past medical history of aortic valve replacement in July 2017 hypertension which is been labile HLD, hypothyroid GERD depression presents to the emergency room via private vehicle for evaluation of her blood pressure and feelings of nausea generalized weakness and some dizziness. Patient states his symptoms have been ongoing for a few weeks she has had numerous changes to her blood pressure medicine via cardiology list and brought her bottles with her the list in the bottles do not exactly match up from what I can tell she is on gabapentin for neuropathy 600 mg at night Levoxyl for hypothyroid 0.1 a day lisinopril 20 twice daily for her blood pressure atenolol 25 a day for blood pressure Zantac for GERD 150 twice daily there is a listing of spironolactone although she does not have a bottle of it this will be held and as per her sodium level is low hydralazine 25 3 times a day atorvastatin 40 mg a day docs.DOXE PIN 25 at bedtime and she has the addition of a Catapres patch. Patient denies any chest pain shortness of breath does have nausea no vomiting no diarrhea no headache no chills no fever but did have some dizziness today. Blood pressure is remained stable in the emergency room but in laboratory review her sodium count was 121 and discussing it with her the only new medicine she is on which was started within the last 2 weeks has been Lexapro at a 10 mg dose and the spironolactone both these can be contributing to her low sodium I will hold these at this time. Follow-up levels in a.m. we will start her on a little bit of IV fluid as well. In view of the dizziness with the hyponatremia I will get a CT of the head noncontrast. DS: Diagnosis Discharge Diagnosis (1) Nausea: Status: Acute (2) Poor appetite: Status: Acute DS: Summary 83-year-old white female with a past medical history of aortic valve replacement in July 2017 hypertension which is been labile HLD, hypothyroid GERD depression presents to the emergency room via private vehicle for evaluation of her blood pressure and feelings of nausea generalized weakness and some dizziness. Patient states his symptoms have been ongoing for a few weeks she has had numerous changes to her blood pressure medicine via cardiology. spironolactone although she does not have a bottle of it this will be held and as per her sodium level is low. Laboratory review her sodium count was 121 and discussing it with her the only new medicine she is on which was started within the last 2 weeks has been Lexapro at a 10 mg dose and the spironolactone both these can be contributing to her low sodium will hold these. Hyponatremia - Lexapro and spironalactone could contribute - poor PO intake could contribute. Sodium at 121 has received some IV fluid this will be continued at a lower dose rate, she did have some dizziness sodium may be related to the use of Lexapro with the spironolactone they are on hold at this time will recheck sodium levels repeat Na 125 (04/19) -> 131 (04/20) recheck in AM urine sodium 64, urine osmolality 289 labs favor SIADH, but pt receiving IV NS when labs were drawn for now restrict fluid intake to 2L daily SIADH w/u should be repeat in the outpt setting in 1-2 weeks repeat BMP/mag on 04/24/18 - for now, resume lexapro upon discharge. Recurrent nausea Poor PO intake Abdomen/Pelvis CT 04/20/18 1. No acute finding is identified to explain the nausea and abdominal pain. 2. Trace right pleural fluid. 3. Severe atherosclerotic disease. EGD (04/21/18) --> esophagitis - pt to start protonix 40mg daily - since pt had EGD with endoscopy. Pt could NOT have GES until Tuesday04/24/18 - Pt will need to be scheduled for GES outpt Labile essential hypertension - keep home bp log - f/u with PCP in 1 week - pt may require further adjustment of BP meds outpt - atenolol 25mg daily - hydralazine 25mg TID - lisinopril 20mg BID - catapress transdermal 0.1mg Weakness - improved - will offer [facility] and home PT Dizziness Noncontrast CT of the head Head CT 04/19/18 1. No acute intracranial abnormality. 2. Atrophy and chronic small vessel ischemic change. - improved Depression - continue lexapro for now DVT prophylaxis with SCDs Time Spent with Patient Total time spent providing and/or coordinating discharge services: Quality: VTE Deep Vein Thrombosis/Pulmonary Embolism Present on Admission: No Results Pending studies at discharge: Pending at discharge 04/21/18 12:45 Surgical [PTH] Routine Impressions ITS Impressions Chest X-Ray 04/18/18 00:00 CONCLUSION: Negative examination. Head CT 04/19/18 00:00 CONCLUSION: 1. No acute intracranial abnormality. 2. Atrophy and chronic small vessel ischemic change. . Abdomen/Pelvis CT 04/20/18 00:00 CONCLUSION: 1. No acute finding is identified to explain the nausea and abdominal pain. 2. Trace right pleural fluid. 3. Severe atherosclerotic disease. Discharge Plan Discharge Disposition Patient Disposition: Discharge Home Discharge Condition Condition: Stable Discharge Details Anticipated Discharge Date: 04/20/18 Physicians Team ED Provider: Lary Spear ED Midlevel Provider: Jackie Carlos Primary Care Provider: Jameel Mcneil Attending Provider: Pancho Craig Other Providers: Too Gallardo V Rxs /Orders / Referrals /Forms Prescriptions: Continue lisinopril 20 mg Tablet 20 mg PO BID RF: 0 atenolol 25 mg Tablet 25 mg PO DAILY RF: 0 hydralazine 25 mg Tablet 25 mg PO TID RF: 0 levothyroxine [Levoxyl] 100 mcg Tablet 100 mcg PO DAILY RF: 0 lorazepam 0.5 mg Tablet 0.5 mg PO TID RF: 0 gabapentin 300 mg Capsule 600 mg PO HS RF: 0 ranitidine HCl 150 mg Capsule 150 mg PO BID RF: 0 atorvastatin 40 mg Tablet 40 mg PO HS RF: 0 Discontinued escitalopram oxalate 10 mg Tablet 10 mg PO DAILY RF: 0 No Action clonidine 0.1 mg/24 hr Patch Weekly 1 patch TRANSDERMAL QWEEK RF: 0 Referrals: Too Gallardo MD [Physician] - See Instructions (follow up in 2 weeks) Norberto Moran MD [Family Provider] - See Instructions (follow up in 1 week) Status ED Status: Left Department
--- NOTE | 2018-04-21 13:26 | P.DCO ---
Diagnosis (1) Nausea: Status: Acute (2) Poor appetite: Status: Acute Physical Therapy Order: Evaluate and treat, Improve ambulation and Strength and gait training Home Health Nursing Order: Medical education, Signs/symptoms of disease process, Medication education-adverse effect and Nursing assessment with vital signs Case Management Consult Case Management Consult-Home Health: Yes I have seen patient Laquita Conrad on 04/21/18. My clinical findings support the need for the requested home health care services because: Medication compliance is questionable, Limited ability to care for self and Need for psychosocial assistance I certify that my clinical findings support that this patient is homebound because: Unsafe to leave home unassisted, Need for psychosocial assistance and Unable to use public transportation
[2018-04-21] MEDS: Sod Chloride 0.9% Inj 1,000 ML IV.CONT SCH (18:17)
== END 2018-04-21 18:23 | disposition home health service (06) ==
LOC: NEPC 16:15 → INTOOBSV 22:46 → NEDA 22:46 → N06 04-19 03:26
PROVIDERS: ADMIT Hospitalist; ATTEND Hospitalist
PROC: PANENDO (2018-04-21 10:44)
DX: M79.89 Other specified soft tissue disorders; E22.2 Syndrome of inappropriate secretion of antidiuretic hormone; F32.9 Major depressive disorder, single episode, unspecified; Z79.899 Other long term (current) drug therapy; Z95.2 Presence of prosthetic heart valve; K44.9 Diaphragmatic hernia without obstruction or gangrene; R63.0 Anorexia; K21.0 Gastro-esophageal reflux disease with esophagitis; I10 Essential (primary) hypertension; R60.9 Edema, unspecified; E03.9 Hypothyroidism, unspecified; K31.9 Disease of stomach and duodenum, unspecified; E78.5 Hyperlipidemia, unspecified